=== PATIENT | female | born 1940 ===

== ENCOUNTER → 2017-04-26 | Outpatient (CLI) | payer MEDICARE | LOC: AMB 11:27 | PROVIDERS: ATTEND Nurse Practitioner | DX: T17.920A Food in respiratory tract, part unspecified causing asphyxiation, initial encounter (principal) | CPT/HCPCS: A0425; A0429 ==

== ENCOUNTER 2017-07-05 14:10 | Inpatient (IN) | payer MEDICARE ==
[~2017-07-05] VITALS: Ht 162.6 cm; Wt 50.6 kg
--- NOTE | 2017-07-05 14:16 | ER Report ---
History and Physical Time Seen By MD: 14:15 HPI/ROS CHIEF COMPLAINT: Fatigue, weakness HISTORY OF PRESENT ILLNESS: 77-year-old female otherwise healthy presents with fatigue and weakness feels too weak to walk progressively over the last 4 days denies chest pain shortness of breath leg pain or swelling unsure fevers no cough or sore throat no other concerns or complaints today. Past medical history includes fungal infection and lung resection years ago. REVIEW OF SYSTEMS: Constitutional: No fever, no chills. Eyes: No discharge. ENT: No sore throat. Cardiovascular: No chest pain, no palpitations. Respiratory: No cough, no shortness of breath. Gastrointestinal: No abdominal pain, no vomiting. Genitourinary: No hematuria. Musculoskeletal: No back pain. Skin: No rashes. Neurological: No headache. Allergies: Coded Allergies: No Known Drug Allergies (Unverified , 07/05/17) Home Meds Reported Medications Donepezil Hcl (DONEPEZIL HCL) 5 Mg Tablet, 5 MG PO QDAY, TAB 07/05/17 Levothyroxine Sodium (LEVOTHYROXINE SODIUM) 50 Mcg Tablet, 25 MCG PO QDAY, TAB 07/05/17 Pravastatin Sodium (PRAVACHOL) 20 Mg Tablet, 20 MG PO QDAY, TAB 07/05/17 Constitutional Vital Sign - Last 24 Hours 07/05/17 07/05/17 14:14 15:58 Temp 97.8 Pulse 101 Resp 16 B/P (MAP) 118/71 Pulse Ox 92 O2 Flow Rate 3.0 Intake and Output 07/05/17 07/05/17 07/06/17 15:00 23:00 07:00 Output Total 30 ml Balance -30 ml Physical Exam General Appearance: The patient is alert, has no immediate need for airway protection and no signs of toxicity. No acute distress Eyes: Pupils equal and round no pallor or injection. ENT, Mouth: Mucous membranes are moist. Respiratory: There are no retractions, lungs are clear to auscultation. Cardiovascular: Regular rate and rhythm. No murmurs gallops or rubs Gastrointestinal: Abdomen is soft and non tender, no masses, bowel sounds normal. Neurological: Negative no focal neurological deficits appreciated on exam. Skin: Warm and dry, no rashes. Musculoskeletal: Neck is supple non tender. Extremities are nontender, nonswollen and have full range of motion. Normal no edema DIFFERENTIAL DIAGNOSIS: After history and physical exam differential diagnosis was considered for pneumonia, pulmonary embolus, acute coronary syndrome, bacteremia, urinary tract infection Medical Decision Making Data Points Result Diagram: 07/05/17 1404 07/05/17 1404 Laboratory Hematology Test 07/05/17 14:04 07/05/17 14:41 07/05/17 15:00 Red Blood Count 4.75 M/uL (4.17-5.56) Mean Corpuscular Volume 86.2 fL (80.0-96.0) Mean Corpuscular Hemoglobin 28.5 pg (26.0-33.0) Mean Corpuscular Hemoglobin Concent 33.1 g/dL (32.0-36.0) Red Cell Distribution Width 14.9 % (11.5-14.5) Mean Platelet Volume 7.3 fL (7.2-11.1) Neutrophils (%) (Auto) 76.8 % (39.4-72.5) Lymphocytes (%) (Auto) 14.8 % (17.6-49.6) Monocytes (%) (Auto) 7.9 % (4.1-12.4) Eosinophils (%) (Auto) 0.1 % (0.4-6.7) Basophils (%) (Auto) 0.4 % (0.3-1.4) Nucleated RBC Relative Count (auto) 0.0 /100WBC Neutrophils # (Auto) 8.9 K/uL (2.0-7.4) Lymphocytes # (Auto) 1.7 K/uL (1.3-3.6) Monocytes # (Auto) 0.9 K/uL (0.3-1.0) Eosinophils # (Auto) 0.0 K/uL (0.0-0.5) Basophils # (Auto) 0.0 K/uL (0.0-0.1) Nucleated RBC Absolute Count (auto) 0.00 K/uL Peripheral Blood Smear No Y/N D-Dimer Quantitative (PE/DVT) 10.24 ug/ml (0-0.50) Sodium Level 134 mmol/L (137-145) Potassium Level 3.6 mmol/L (3.5-5.0) Chloride Level 96 mmol/L (98-107) Carbon Dioxide Level 24 mmol/L (22-31) Blood Urea Nitrogen 20 mg/dl (7-18) Creatinine 0.70 mg/dl (0.52-1.04) Glomerular Filtration Rate Calc > 60.0 Random Glucose 192 mg/dl (75-110) Calcium Level 9.5 mg/dl (8.4-10.2) Total Bilirubin 0.6 mg/dl (0.2-1.3) Aspartate Amino Transf (AST/SGOT) 45 U/L (0-35) Alanine Aminotransferase (ALT/SGPT) 30 U/L (0-56) Alkaline Phosphatase 110 U/L (0-126) Troponin I < 0.012 ng/ml B-Type Natriuretic Peptide 229 pg/ml (0-100) Total Protein 10.1 gm/dl (6.3-8.2) Albumin 3.6 g/dl (3.5-5.0) Influenza Virus Type A (PCR) Negative (NEGATIVE) Influenza Virus Type B (PCR) Negative (NEGATIVE) Urine Color Yellow Urine Clarity Clear Urine pH 6.0 pH (4.8-9.5) Urine Specific [place] 1.018 Urine Protein 30 mg/dL (NEGATIVE) Urine Glucose (UA) Negative mg/dL (NEGATIVE) Urine Ketones Negative mg/dL (NEGATIVE) Urine Blood Negative (NEGATIVE) Urine Nitrite Negative (NEGATIVE) Urine Bilirubin Negative (NEGATIVE) Urine Urobilinogen Negative mg/dL (0.2-1.9) Urine Leukocyte Esterase Negative (NEGATIVE) Urine RBC 2 /HPF (0-2/HPF) Urine WBC 1 /HPF (0-5/HPF) Urine Squamous Epithelial Cells None /LPF (NONE-FEW) Urine Bacteria Negative /HPF (NONE-FEW) Urine Hyaline Casts Many /LPF (NONE-FEW) Urine Mucus Few /HPF (NONE-FEW) Chemistry Test 07/05/17 14:04 07/05/17 14:41 07/05/17 15:00 White Blood Count 11.5 k/uL (4.5-11.0) Red Blood Count 4.75 M/uL (4.17-5.56) Hemoglobin 13.5 g/dL (12.0-16.0) Hematocrit 40.9 % (34.0-47.0) Mean Corpuscular Volume 86.2 fL (80.0-96.0) Mean Corpuscular Hemoglobin 28.5 pg (26.0-33.0) Mean Corpuscular Hemoglobin Concent 33.1 g/dL (32.0-36.0) Red Cell Distribution Width 14.9 % (11.5-14.5) Platelet Count 322 K/uL (150-450) Mean Platelet Volume 7.3 fL (7.2-11.1) Neutrophils (%) (Auto) 76.8 % (39.4-72.5) Lymphocytes (%) (Auto) 14.8 % (17.6-49.6) Monocytes (%) (Auto) 7.9 % (4.1-12.4) Eosinophils (%) (Auto) 0.1 % (0.4-6.7) Basophils (%) (Auto) 0.4 % (0.3-1.4) Nucleated RBC Relative Count (auto) 0.0 /100WBC Neutrophils # (Auto) 8.9 K/uL (2.0-7.4) Lymphocytes # (Auto) 1.7 K/uL (1.3-3.6) Monocytes # (Auto) 0.9 K/uL (0.3-1.0) Eosinophils # (Auto) 0.0 K/uL (0.0-0.5) Basophils # (Auto) 0.0 K/uL (0.0-0.1) Nucleated RBC Absolute Count (auto) 0.00 K/uL Peripheral Blood Smear No Y/N D-Dimer Quantitative (PE/DVT) 10.24 ug/ml (0-0.50) Glomerular Filtration Rate Calc > 60.0 Calcium Level 9.5 mg/dl (8.4-10.2) Total Bilirubin 0.6 mg/dl (0.2-1.3) Aspartate Amino Transf (AST/SGOT) 45 U/L (0-35) Alanine Aminotransferase (ALT/SGPT) 30 U/L (0-56) Alkaline Phosphatase 110 U/L (0-126) Troponin I < 0.012 ng/ml B-Type Natriuretic Peptide 229 pg/ml (0-100) Total Protein 10.1 gm/dl (6.3-8.2) Albumin 3.6 g/dl (3.5-5.0) Influenza Virus Type A (PCR) Negative (NEGATIVE) Influenza Virus Type B (PCR) Negative (NEGATIVE) Urine Color Yellow Urine Clarity Clear Urine pH 6.0 pH (4.8-9.5) Urine Specific [place] 1.018 Urine Protein 30 mg/dL (NEGATIVE) Urine Glucose (UA) Negative mg/dL (NEGATIVE) Urine Ketones Negative mg/dL (NEGATIVE) Urine Blood Negative (NEGATIVE) Urine Nitrite Negative (NEGATIVE) Urine Bilirubin Negative (NEGATIVE) Urine Urobilinogen Negative mg/dL (0.2-1.9) Urine Leukocyte Esterase Negative (NEGATIVE) Urine RBC 2 /HPF (0-2/HPF) Urine WBC 1 /HPF (0-5/HPF) Urine Squamous Epithelial Cells None /LPF (NONE-FEW) Urine Bacteria Negative /HPF (NONE-FEW) Urine Hyaline Casts Many /LPF (NONE-FEW) Urine Mucus Few /HPF (NONE-FEW) Coagulation Test 07/05/17 14:04 D-Dimer Quantitative (PE/DVT) 10.24 ug/ml Urinalysis Test 07/05/17 15:00 Urine Color Yellow Urine Clarity Clear Urine pH 6.0 pH (4.8-9.5) Urine Specific [place] 1.018 Urine Protein 30 mg/dL (NEGATIVE) Urine Glucose (UA) Negative mg/dL (NEGATIVE) Urine Ketones Negative mg/dL (NEGATIVE) Urine Blood Negative (NEGATIVE) Urine Nitrite Negative (NEGATIVE) Urine Bilirubin Negative (NEGATIVE) Urine Urobilinogen Negative mg/dL (0.2-1.9) Urine Leukocyte Esterase Negative (NEGATIVE) Urine RBC 2 /HPF (0-2/HPF) Urine WBC 1 /HPF (0-5/HPF) Urine Squamous Epithelial Cells None /LPF (NONE-FEW) Urine Bacteria Negative /HPF (NONE-FEW) Urine Hyaline Casts Many /LPF (NONE-FEW) Urine Mucus Few /HPF (NONE-FEW) EKG/Imaging EKG Interpretation My read: Normal sinus rhythm rate of 88 normal MN QRS and QTc intervals no ST or T-wave changes to suggest ischemia or infarction overall impression: Normal EKG ED Course/Re-evaluation ED Course Radiology report called back to me the findings were discussed with the hospitalist Dr. Cristian Saab, who is seen patient in the emergency department patient will be admitted to a resuscitation room for TB rule out and further evaluation. This is discussed with the patient who agrees with the plan for admission. Vitals are stable for floor admission. Decision to Disposition Date: Jul 05, 2017 Decision to Disposition Time: 17:52 Depart Departure Latest Vital Signs Vital Signs Date Time Temp Pulse Resp B/P (MAP) Pulse Ox O2 Delivery O2 Flow Rate FiO2 07/05/17 15:58 3.0 07/05/17 14:14 97.8 101 16 118/71 92 Impression: Primary Impression: Weakness generalized Condition: Improved Disposition: HOME OR SELF-CARE MIKAELA REAGAN MD Jul 05, 2017 14:15
[2017-07-05] MEDS ORDERED: PRAV20TA65 PO (14:19)
[2017-07-05] MEDS ORDERED: DONE5TAB29 PO (14:19)
[2017-07-05] MEDS ORDERED: LEVO50TA86 PO (14:19)
[2017-07-05] MEDS ORDERED: NS(*) 0.9% 1000 ML BAG 1,000 ML IV ONE (14:30)
[2017-07-05 14:44] LABS: PLATELET COUNT, AUTOMATED 322 K/uL (150-450)
[2017-07-05] MEDS ORDERED: EMS NS 0.9%(*) 1000 ML BAG 1,000 ML IV ONE (14:45)
--- NOTE | 2017-07-05 14:49 | EKG ---
[place] [facility] [place] AMY GUZMAN : [id number] MR: [id number] V: [id number] EXAM DATE: ORDERING PHYSICIAN: MIKAELA REAGAN TECHNOLOGIST: KAREY Gordillo Reason : HTN Blood Pressure : / mmHG Vent. Rate : 088 BPM Atrial Rate : 088 BPM P-R Int : 148 ms QRS Dur : 096 ms QT Int : 380 ms P-R-T Axes : 083 065 076 degrees QTc Int : 459 ms Normal sinus rhythm Normal ECG No previous ECGs available Confirmed by MAITE MUNOZ ([id number]) on 07/05/2017 3:07:51 PM Referred By: Confirmed By:MAITE MUNOZ
--- NOTE | 2017-07-05 15:15 | RADIOLOGY IMAGING REPORT ---
FACILITY: [facility] PATIENT NAME: April Barraza : 1940 MR: [id number] V: [id number] EXAM DATE: ORDERING PHYSICIAN: MIKAELA REAGAN TECHNOLOGIST: Location: [facility] - [place] Patient: April Barraza : 1940 Visit/Account:[id number] Date of Sevice: 07/05/2017 CHEST SINGLE AP Indication: Wheezing and dyspnea.. Comparison: 04/26/2017. Findings: Cardiomediastinal silhouette and pulmonary vessels within normal limits. There is increased interstitial opacities with underlying chronic interstitial changes. No focal cons olidation. No pneumothorax or pleural effusion. No nodule. Upper abdomen is unremarkable. No acute bony abnormality. Bilateral breast implants are vi sualized. IMPRESSION: 1. Increased interstitial opacities may be secondary to edema, interstitial pneumonitis or less likel y worsening chronic interstitial disease. Report Dictated By: Wander Whiting at 07/05/2017 3:09 PM Report E-Signed By: Wander Whiting at 07/05/2017 3:11 PM WSN:[id number]
[2017-07-05] MEDS ORDERED: NS 0.9% 150 ML BAG 150 ML ONE (15:28)
[2017-07-05] MEDS ORDERED: IOPAMIDOL 76% 75 ML INFUS BTL 75 ML ONE (15:28)
--- NOTE | 2017-07-05 16:37 | RADIOLOGY IMAGING REPORT ---
[place] [facility] [place] NAME: April Barraza : 1940 MR: [id number] V: [id number] EXAM DATE: ORDERING PHYSICIAN: MIKAELA REAGAN TECHNOLOGIST: Location: [facility] - [place] Patient: April Barraza : 1940 Visit/Account:[id number] Date of Sevice: 07/05/2017 EXAMINATION: CT chest angiogram HISTORY: Elevated d-dimer, weakness TECHNIQUE: CT angiogram was obtained through the chest with intravenous contrast. Sagittal and cor onal MPR and MIP coronal reformations were generated. 75 mL chest radiograph same day was injected. One of the following dose optimization techniques was utilized in the performance of this exam: autom ated exposure control; adjustment of the mA and/or kV according to patient size; or use of iterative reconstruction technique. Specific details can be referenced in the facility's radiology CT exam ope rational policy. COMPARISON: None. FINDINGS: Lower neck: Left thyroid nodule measures 1.6 cm transverse dimension. Heart / pericardium/aorta/great vessels: Normal. Mediastinum: Normal. Lymph node assessment: Normal. Pleura: Normal. Pulmonary arteries/pulmonary arterial vascular tree: No pulmonary embolus identified.. Lungs: Bilateral scattered pulmonary cysts versus emphysematous blebs most pronounced in the left lo wer lobe. Peripheral scarring along the right lateral lower lobe, image 48. Ovoid nodular consolidati on in the right lower lobe abuts the major fissure and is partially cavitary, image 37 measuring 1.7 cm. Multiple regional nodules in the medial right upper lobe measuring up to 6 mm, axial image 27. Ad ditional irregular scarring in the left upper lobe measuring 1.7 cm medially, image 21. Partially irregularly shaped partially cavitary consolidation in the right upper lobe abuts the pleur a and measures 2.8 x 2 cm transverse, axial image 22 x 4.2 cm craniocaudad, coronal image 150. Anterior right upper lobe focal probable scarring, axial image 34. Right lower lobe peripheral nodular scarring, coronal image 183 measures 9 mm. Subtle centrilobular nodularity in the right middle and right lower lobes, coronal image 97. Upper abdomen: Normal. Chest wall: Rim calcified breast implants. Musculoskeletal: Minimal chronic T4 wedge compression deformity. Partially imaged L1 wedge compression deformity with superior concave endplate deformity and subtle n ondisplaced fracture lucency, sagittal image 134. IMPRESSION: 1. No pulmonary embolus. 2. Age-indeterminate nonspecific cavitary consolidation in the right upper lobe measures 2.8 x 2 x 4. 2 cm. This may represent the residua of prior TB or fungal infection. An acute TB/fungal infection is felt less likely but cannot be entirely excluded. An acute cavitary bronchopneumonia cannot be exclu ded. A cavitary malignancy is felt less likely but cannot be entirely excluded and follow-up chest CT 1-2 months is recommended to evaluate for persistence/stability. 3. Scattered pulmonary nodules in the right upper lobe, right middle and right lower lobes which may represent the residua of prior infectious or inflammatory process. An acute small airways infection o r metastatic nodularity are felt less likely but cannot be entirely excluded. Attention to these nodules on follow-up. 4. Subacute to chronic nonhealed partially imaged L1 wedge compression fracture. Correlate with exam. 5. 1.6 cm left thyroid nodule. Given size follow up ultrasound may be warranted for further character ization. Results were called to MIKAELA REAGAN on 07/05/2017 4:32 PM. Report Dictated By: Kevin Jiménez MD at 07/05/2017 4:07 PM Report E-Signed By: Kevin Jiménez MD at 07/05/2017 4:32 PM WSN:[id number]
[2017-07-05] MEDS ORDERED: NS(*) 0.9% 1000 ML BAG 1,000 ML IV PRN (18:09)
[2017-07-05] MEDS ORDERED: ACETAMINOPHEN 325 MG TAB PO PRN (18:10)
[2017-07-05] MEDS ORDERED: INSULIN HUM LISPRO 100 UN/ML 3 ML VIAL SUBQ PRN (18:45)
--- NOTE | 2017-07-05 18:56 | History & Physical ---
History of Present Illness History of Present Illness 77yo female with a h/o dementia and "yeast infection" of the lung who was brought to the ER for progressive weakness. Her significant other gives most of the history, but she gives some.For the last couple of weeks, she has had a decreased appetite and weakness. Today, she couldn't stand on her own. She also had an episode where she gagged on food. She denies night sweats, cough, fever, diarrhea, dysuria, focal weakness. There have been no new medications. About 5-6 years ago, she had a lung surgery on the right for "yeast infection". History Problems: (1) Hypothyroid Status: Chronic (2) Hyperlipemia Status: Chronic (3) Dementia Status: Chronic (4) Sjogrens syndrome Status: Chronic (5) History of cholecystectomy (6) History of tonsillectomy (7) History of lung surgery Home Meds Reported Medications Donepezil Hcl (DONEPEZIL HCL) 5 Mg Tablet, 5 MG PO QDAY, TAB 07/05/17 Levothyroxine Sodium (LEVOTHYROXINE SODIUM) 50 Mcg Tablet, 25 MCG PO QDAY, TAB 07/05/17 Pravastatin Sodium (PRAVACHOL) 20 Mg Tablet, 20 MG PO QDAY, TAB 07/05/17 Allergies: Coded Allergies: No Known Drug Allergies (Unverified , 07/05/17) Other Social/Family Hx She lives with her significant other in an apartment in [place]. 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 Hx Smoking: No Hx Alcohol Use: No Review of Systems All Systems Reviewed/Normal: Yes, Except as Noted Exam Vital Signs Vital Signs Date Time Temp Pulse Resp B/P (MAP) Pulse Ox O2 Delivery O2 Flow Rate FiO2 07/05/17 17:30 89 26 144/73 (96) 97 07/05/17 15:58 3.0 07/05/17 14:14 97.8 General Appearance: Alert, Awake, No Acute Distress Neuro: No Gross deficits ENT: Oropharynx Clear, Posterior Pharynx Clear, Other (Tacky mucus membranes.) Cardiovascular: Regular Rate and Rhythm Respiratory: Clear to Auscultation GI: Abd Soft and Non-Tender Extremities: No Edema Integumentary: No Jaundice, No Cyanosis Medical Decision Making Data Points Result Diagram: 07/05/17 1404 07/05/17 1404 Item Value Date Time White Blood Count 11.5 k/uL H 07/05/17 1404 Hemoglobin 13.5 g/dL 07/05/17 1404 Neutrophils (%) (Auto) 76.8 % H 07/05/17 1404 Lymphocytes (%) (Auto) 14.8 % L 07/05/17 1404 Monocytes (%) (Auto) 7.9 % 07/05/17 1404 Eosinophils (%) (Auto) 0.1 % L 07/05/17 1404 Lactate 0.9 mmol/L 07/05/17 1748 B-Type Natriuretic Peptide 229 pg/ml H 07/05/17 1404 Total Protein 10.1 gm/dl H 07/05/17 1404 Albumin 3.6 g/dl 07/05/17 1404 Total Bilirubin 0.6 mg/dl 07/05/17 1404 Aspartate Amino Transf (AST/SGOT) 45 U/L H 07/05/17 1404 Alanine Aminotransferase (ALT/SGPT) 30 U/L 07/05/17 1404 Alkaline Phosphatase 110 U/L 07/05/17 1404 Troponin I < 0.012 ng/ml 07/05/17 1404 Influenza Virus Type A (PCR) Negative 07/05/17 1441 Influenza Virus Type B (PCR) Negative 07/05/17 1441 Urine WBC 1 /HPF 07/05/17 1500 Urine RBC 2 /HPF 07/05/17 1500 Urine Squamous Epithelial Cells None /LPF 07/05/17 1500 Urine Bacteria Negative /HPF 07/05/17 1500 Urine Hyaline Casts Many /LPF H 07/05/17 1500 Urine Leukocyte Esterase Negative 07/05/17 1500 Urine Nitrite Negative 07/05/17 1500 D-Dimer Quantitative (PE/DVT) 10.24 ug/ml H 07/05/17 1404 EKG / Imaging EKG Interpretation Vent. Rate : 088 BPM Atrial Rate : 088 BPM P-R Int : 148 ms QRS Dur : 096 ms QT Int : 380 ms P-R-T Axes : 083 065 076 degrees QTc Int : 459 ms Normal sinus rhythm Normal ECG No previous ECGs available Confirmed by MAITE MUNOZ ([id number]) on 07/05/2017 3:07:51 PM Imaging CXR - 1. Increased interstitial opacities may be secondary to edema, interstitial pneumonitis or less likely worsening chronic interstitial disease. Chest CTA - 1. No pulmonary embolus. 2. Age-indeterminate nonspecific cavitary consolidation in the right upper lobe measures 2.8 x 2 x 4.2 cm. This may represent the residua of prior TB or fungal infection. An acute TB/fungal infection is felt less likely but cannot be entirely excluded. An acute cavitary bronchopneumonia cannot be excluded. A cavitary malignancy is felt less likely but cannot be entirely excluded and follow-up chest CT 1-2 months is recommended to evaluate for persistence/ stability. 3. Scattered pulmonary nodules in the right upper lobe, right middle and right lower lobes which may represent the residua of prior infectious or inflammatory process. An acute small airways infection or metastatic nodularity are felt less likely but cannot be entirely excluded. Attention to these nodules on follow-up. 4. Subacute to chronic nonhealed partially imaged L1 wedge compression fracture. Correlate with exam. 5. 1.6 cm left thyroid nodule. Given size follow up ultrasound may be warranted for further characterization. Assessment and Plan Problems: (1) Weakness generalized Status: Acute Assessment & Plan: She presented with progressive weakness over the last couple of weeks and poor appetite. Today, she couldn't get up on her own and she had a gagging episode. This is likely multifactorial. She appears mildly dehydrated. She has an elevated WBC, cavitary lesion on CT, hyperglycemia, and a very elevated total protein. See below. Will hydrate and ask OT/PT to evaluate. (2) Cavitary lesion of lung Status: Acute Assessment & Plan: This is likely related to her previous "yeast infection" of the right lung about 5-6 years ago that was resected. 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 We will try to get the discharge summary from the hospitalization to help clarify. Also, a Emergency Medicine will be in the outpatient clinics tomorrow from the system and will be able to look at those records. (3) Hyperglycemia Status: Acute Assessment & Plan: Check a HgA1c, AC/HS glucose and cover with SSI level 2. (4) Elevated total protein Status: Acute Assessment & Plan: TP is 10.1 and the albumin is 3.6. Will check serum peptide electrophoresis for concern of multiple myeloma and check CRP. (5) Dementia Status: Chronic Assessment & Plan: She is chronically on Aricept which will be held for now. (6) Sjogrens syndrome Status: Chronic Assessment & Plan: This is likely contributing to the gagging episodes. Will ask ST to evaluate. (7) Hypothyroid Status: Chronic Assessment & Plan: TSH pending. Continue levothyroxine. She does have a thyroid nodule seen on the CT. Will need to have that evaluated as an outpatient. (8) Hyperlipemia Status: Chronic Assessment & Plan: Will hold her chronic pravastatin and check a CPK. Venous Thromboembolism Antithrombotics Is Pt On Any Antithrombotics?: No Exam Sepsis Risk: No Definite Risk MAITE MUNOZ MD Jul 05, 2017 18:56
[2017-07-05 19:59] VITALS: BP 136/76
[2017-07-06 02:44] VITALS: BP 146/79
[2017-07-06] MEDS: LEVOTHYROXINE SOD 0.025 MG TAB PO SCH (05:31)
[2017-07-06 06:32] LABS: PLATELET COUNT, AUTOMATED 259 K/uL (150-450)
[2017-07-06 08:38] VITALS: BP 138/77
[2017-07-06] MEDS: ENOXAPARIN 40 MG/0.4ML SYR SC SCH (08:51)
--- NOTE | 2017-07-06 10:39 | Hospitalist Progress Note ---
Subjective Progress Notes Subjective This patient was admitted for weakness. She had no acute events overnight. Patient Complains of: Cardiovascular: No: Chest Pain Respiratory: No: Shortness of Breath Physical Exam Vital Signs Date Time Temp Pulse Resp B/P (MAP) Pulse Ox O2 Delivery O2 Flow Rate FiO2 07/06/17 10:08 106 97 Nasal Cannula 2.0 07/06/17 08:38 98.8 20 138/77 (97) Intake and Output 07/07/17 07:00 # Voids 2 Cardiovascular: Regular Rate and Rhythm Respiratory: Clear to Auscultation Extremities: No Edema Integumentary: No Cyanosis Result Diagram: 07/06/17 0556 07/06/17 0556 Item Value Date Time Blood Culture - Preliminary Resulted 07/05/17 1815 Blood Peripheral Draw NO GROWTH AFTER 1 DAY, REINCUBATED Blood Culture - Preliminary Resulted 07/05/17 1748 Blood Peripheral Draw NO GROWTH AFTER 1 DAY, REINCUBATED Assessment and Plan Problems: (1) Weakness generalized Status: Acute Assessment & Plan: She did present with complaints of weakness. Physical and occupational therapy consults are ordered. (2) Cavitary lesion of lung Status: Acute Assessment & Plan: This is likely related to her previous "yeast infection" of the right lung about 5-6 years ago that was resected. 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 (3) Hyperglycemia Status: Acute Assessment & Plan: She did have an elevated glucose at admission, but it has come down without intervention. Her HgbA1C is 5.7, She will need to follow up with primary care after discharge. (4) Elevated total protein Status: Acute Assessment & Plan: TP is 10.1 and the albumin is 3.6. Will check serum peptide electrophoresis for concern of multiple myeloma and check CRP. (5) Dementia Status: Chronic Assessment & Plan: She is chronically on Aricept which will be held for now. (6) Sjogrens syndrome Status: Chronic Assessment & Plan: This is likely contributing to the gagging episodes. Will ask ST to evaluate. (7) Hypothyroid Status: Chronic Assessment & Plan: TSH pending. Continue levothyroxine. She does have a thyroid nodule seen on the CT. Will need to have that evaluated as an outpatient. (8) Hyperlipemia Status: Chronic Assessment & Plan: Will hold her chronic pravastatin and check a CPK. (9) Dysphagia Assessment & Plan: A speech consult is pending. Exam Sepsis Risk: No Definite Risk YOAV SUAREZ DO Jul 06, 2017 10:39
[2017-07-06 11:52] VITALS: BP 122/77
[2017-07-06 14:32] VITALS: Ht 162.6 cm; Wt 50.6 kg
[2017-07-06 15:18] VITALS: BP 120/91
--- NOTE | 2017-07-06 16:25 | SWALLOW EVALUATION ---
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 Pt is currently in isolation to rule out TB. PREVIOUS LEVEL OF FUNCTION: Primary Medical Diagnosis: Sjorgens Syndrome, Dementia, Respiratory problems Prior Level of Function: lives a home with spouse, independent Medical Complications/Past Medical History: See chart for details COGNITION/COMMUNICATION LOC / Participation: alert cooperative COMMUNICATIVE TASKS: Intact, mild memory deficits SPEECH Apraxia: Non-apraxic Dysarthric: Non-dysarthric Overall intelligibility: high VOICE Vocal Deficits: No Changes to vocal quality: denies DYSPHAGIA Dysphagia Risk Evaluation Protocol DREP: Water Swallow Test: Pass, Puree Swallow Test: Pass, Solids Swallow Test: Pass Dysphagia Severity Rating Scale: 2: Mild oral stage dysphagiaoral dysphagia present, which can be managed by specific swallow suggestions. Modification in consistency of diet is indicated. RSST (Repetitive Saliva Swallow Test): Value greater than 3 times/30 sec = pass Sialorrhea: No Xerostomia: Yes Supplemental Oxygen Use: No Oxygen Saturation: Remains Stable w/ 10ml thin liquids. Respiratory Rate: 18-20bpm < 30 indicating a decreased risk of atypical respiratory/swallow pattern COPD Dx: No Oral Structure and Function: Largely edentulous. Had dentures until approximately 6m ago when her anchor teeth succumb to erosion. She does not plan on replacing dentures d/t cost. Pain with Swallow: Denies Respiratory/Swallow Coordination: Typically patterned (ie. exhale/swallow/ exhale) Oral Stage Oral Stage Dysphagia: mild oral stage dysphagia d/t pt is largely edentulous, xerostomia Self Feeds: Yes Comment: pt demonstrates independence with food prep modifications to compensate for oral stage dysphagia (described above) Pharyngeal Stage Pharyngeal Stage Dysphagia: No s/s of acute pharyngeal stage dysphagia including penetration/ aspiration with liquids or foods. Pt denies s/s of pharyngeal dysphagia post Apr 26 when she was brought to [facility] for choking. She reports she has modified food prep and takes other safety precautions including, soft foods, wet foods, chopped foods, ground meats, slowed eating, small bites Assistance Required: none Indication of acute aspiration witnessed or reported by patient, family or staff : No Aspiration Risk: increased d/t oral stage dysphagia Esophageal Stage Esophageal Stage Dysphagia Indicated: No ST ASSESSMENT SUMMARY DYSPHAGIA Pt demonstrated no acute pharyngeal dysphagia during the evaluation including no penetration/aspiration. She is aware of oral dysphagia d/t largely edentulous and xerostomia. She is aware of increased risk of pharyngeal dysphagia and aspiration d/t oral stage dysphagia. She reports significant modifications to food prep at home following aspiration event in 2016. She follows precautions including: ground meats, soft foods, add moisture , has liquids nearby when eating, slowed eating, small bites. She denies any s /s of pharyngeal dysphagia post Apr, 2017. She agrees to dysphagia 2 diet modification to accommodate oral stage deficits. COGNITIVE: Hx of dementia. Adequate to participate in conversation/education regarding dysphagia/swallow safety RECOMMENDATIONS 1. Diet Modification: Dysphagia 2, wet and chopped. Regular/thin liquids ok 2 Pills: as tolerated 4. Supervision with meals/snacks: Check for oral stasis following meals prior to reclining. 5. Further Evaluation: not at this time. No further need for ST indicated at this time. Thank you for this referral. Lucia Rowley M.S., [facility]-[employer] Speech Therapist LINDY
[2017-07-06 19:26] VITALS: BP 117/70
[2017-07-07] VITALS (11 sets, daily range): BP systolic 85–119; BP diastolic 58–80
[2017-07-07] MEDS: LEVOTHYROXINE SOD 0.025 MG TAB PO SCH (05:46)
[2017-07-07] MEDS ORDERED: NS(*) 0.9% 250 ML BAG 250 ML IV ONE (07:50)
[2017-07-07] MEDS: ENOXAPARIN 40 MG/0.4ML SYR SC SCH (08:32)
--- NOTE | 2017-07-07 11:00 | EKG ---
FACILITY: [facility] PATIENT NAME: AMY GUZMAN : [id number] MR: [id number] V: [id number] EXAM DATE: ORDERING PHYSICIAN: CHARLIE HAMMOND TECHNOLOGIST: BLAYNE Gordillo Reason : TACHY Blood Pressure : / mmHG Vent. Rate : 152 BPM Atrial Rate : 322 BPM P-R Int : 000 ms QRS Dur : 084 ms QT Int : 286 ms P-R-T Axes : 000 059 054 degrees QTc Int : 454 ms Atrial flutter with variable AV block Abnormal ECG When compared with ECG of 05-JUL-2017 14:37, Atrial flutter has replaced Sinus rhythm Vent. rate has increased BY 64 BPM Nonspecific T wave abnormality now evident in Inferior leads Confirmed by MAITE MUNOZ ([id number]) on 07/07/2017 4:08:02 PM Referred By: ALEXANDER Confirmed By:MAITE MUNOZ
[2017-07-07] MEDS ORDERED: NS(*) 0.9% 500 ML BAG 500 ML IV ONE (11:20)
[2017-07-07] MEDS ORDERED: DILTIAZEM 5 MG/ML 5ML IVPUSH IVP ONE (11:20)
[2017-07-07] MEDS: DILTIAZEM HCL* 100 MG ADDVIAL 100 MG in NS(*) 0.9% 100 ML ADDVANT BAG 100 ML IV SCH ×2 (11:47→23:06)
--- NOTE | 2017-07-07 12:41 | Hospitalist Progress Note ---
Subjective Progress Notes Subjective She is without complaints. She went into aflutter with a rate of 150 after the visit. She was without symptoms. Physical Exam Vital Signs Date Time Temp Pulse Resp B/P (MAP) Pulse Ox O2 Delivery O2 Flow Rate FiO2 07/07/17 12:06 85/67 (73) 07/07/17 11:45 130 07/07/17 10:22 97.9 16 96 Nasal Cannula 0.5 Intake and Output 07/08/17 07:00 # Voids 2 General Appearance: Alert, Awake, No Acute Distress Cardiovascular: Regular Rate and Rhythm Result Diagram: 07/06/17 0556 07/06/17 0556 Assessment and Plan Problems: (1) Weakness generalized Status: Acute Assessment & Plan: She presented with progressive weakness over the last couple of weeks and poor appetite. The day of admission, she couldn't get up on her own and she had a gagging episode. This is likely multifactorial, but concerned about a failure to thrive at home. She was hydrated. She had an elevated WBC (now normal), elevated CPK, cavitary lesion on CT, hyperglycemia ( now resolved), and a very elevated total protein. See below. OT/PT following. She might need an MRI of the brain. Will repeat CPK and add ESR for concern of PMR. (2) Atrial flutter Status: Acute Assessment & Plan: She is asymptomatic. [id number] score of 3. Trying to control rate with diltiazem. Will get an echo. She currently is on Lovenox 40mg a day for stroke prophylaxis. Will look into if insurance will cover Xarelto. (3) Cavitary lesion of lung Status: Acute Assessment & Plan: This is likely related to her previous "yeast infection" of the right lung about 5-6 years ago that was resected. 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 We will try to get the discharge summary from the hospitalization to help clarify. (4) Hyperglycemia Status: Resolved Assessment & Plan: She did have an elevated glucose at admission, but it has come down without intervention. Her HgbA1C is 5.7, She will need to follow up with primary care after discharge. (5) Elevated total protein Status: Acute Assessment & Plan: TP is 10.1 and the albumin is 3.6. Will check serum peptide electrophoresis for concern of multiple myeloma. CRP elevated. (6) Dementia Status: Chronic Assessment & Plan: She is chronically on Aricept which will be held for now. (7) Sjogrens syndrome Status: Chronic Assessment & Plan: This is likely contributing to the gagging episodes. ST recommends dysphagia 2 diet , wet and chopped. No changes in liquid thickness recommended. (8) Dysphagia Assessment & Plan: See above. (9) Hypothyroid Status: Chronic Assessment & Plan: TSH elevated. Increase levothyroxine. She does have a thyroid nodule seen on the CT. Will need to have that evaluated as an outpatient. (10) Hyperlipemia Status: Chronic Assessment & Plan: Will hold her chronic pravastatin. CPK wnl. Exam Sepsis Risk: No Definite Risk MAITE MUNOZ MD Jul 07, 2017 12:41
[2017-07-07] MEDS ORDERED: DIGOXIN 0.5 MG/2 ML AMP IVP ONE ×2 (13:00→18:00)
[2017-07-07] MEDS: NS(*) 0.9% 1000 ML BAG 1,000 ML IV PRN (14:34)
[2017-07-08 03:18] VITALS: BP 94/62
[2017-07-08] MEDS: LEVOTHYROXINE SOD 0.05 MG TAB PO SCH (05:57)
[2017-07-08 06:12] LABS: PLATELET COUNT, AUTOMATED 286 K/uL (150-450)
[2017-07-08 07:50] VITALS: BP 118/73
[2017-07-08] MEDS: ENOXAPARIN 40 MG/0.4ML SYR SC SCH (08:38)
[2017-07-08] MEDS ORDERED: INFLUENZA VIRUS VAC 0.5 ML SYR IM ONLY ONE (09:00)
--- NOTE | 2017-07-08 09:50 | RADIOLOGY IMAGING REPORT ---
FACILITY: PATIENT NAME: AMY GUZMAN : [id number] MR: [id number] V: [id number] EXAM DATE: ORDERING PHYSICIAN: MAITE MUNOZ TECHNOLOGIST: Stephy Church EXAMINATION:TWO-DIMENSIONAL ECHOCARDIOGRAPH REASON:ATRIAL FIBRILATION 2D Measurements (normal values in centimeters) LV endLV endRV endVent.LV PostAorticLeftPercent DiastolicSystolicDiastolicSeptumWallRootAtriumShortening (3.5-5.7)(0.9-2.6)(0.6-1.1)(0.6-1.1)(2.0-3.7)(1.9-4.0)(25-35%) [id number]% STROKE VOLUME: 25ml ESTIMATED EJECTION FRACTION:55% PARASTERNAL LONG AXIS: Patient appears to be in atrial flutter. No thrombi are noted but the left atrial appendage is not seen. The overall left ventricular systolic function appears to be normal. Chamber sizes also appear to be normal. Aortic valve & mitral valve both appear to open normally. Color examination reveals a trace of mitral insufficiency present. PARASTERNAL SHORT AXIS: Overall left ventricular systolic function again appears to be normal. No specific wall motion abnormalities are noted. Aortic valve is trileaflet in configuration & appears to open normally. Color examination of the aortic valve was unremarkable. APICAL FOUR AND TWO CHAMBER: Again left ventricular systolic function appears to be normal. Trace of tricuspid & mitral insufficiency is noted. The aortic valve area was measured within normal ranges at 2.1cm2. The tricuspid regurgitation Vmax measured at 2.8m/sec. The left atrial & right atrial volumes are measured within normal ranges at 18 & 22ml/m2. SUBCOSTAL VIEW: No pericardial effusion was noted. No atrioseptal or ventriculoseptal defects were appreciated. OVERALL IMPRESSION: 1. Normal left ventricular ejection fraction. We were not able to accurately characterize the diastolic function as the patient is in atrial flutter. No thrombi were noted in any of the chambers. Left atrial appendage is not seen. 2. Chamber sizes are normal. 3. A trileaflet aortic valve with no abnormalities. 4. A trace of mitral & tricuspid insufficiency with right ventricular systolic pressures at the upper range of normal at 35mm Hg. This does include an estimated right atrial pressure of 3mm Hg. Dictated by: Jessica Velasquez M.D. on 07/08/2017 at 6:55 Transcribed by: MARY on 07/08/2017 at 8:37 Approved by: Jessica Velasquez M.D. on 07/08/2017 at 9:49 [facility]
[2017-07-08 13:06] VITALS: BP 110/59
[2017-07-08 14:41] VITALS: BP 121/65
--- NOTE | 2017-07-08 15:39 | Hospitalist Progress Note ---
Subjective Progress Notes Subjective She does not complain, but is still very weak. We were able to obtain some old records. Physical Exam Vital Signs Date Time Temp Pulse Resp B/P (MAP) Pulse Ox O2 Delivery O2 Flow Rate FiO2 07/08/17 14:41 98.1 91 12 121/65 (83) 90 Nasal Cannula 0.5 Intake and Output 07/09/17 07:00 Intake Total 0 ml Balance 0 ml Intake Oral 0 ml # Voids 1 General Appearance: Alert, Awake Neuro: Other (generalized weakness) Cardiovascular: Other (Fairly regular) Respiratory: Other (fairly clear) GI: Soft and Non-Tender Extremities: Warm, Perfused Result Diagram: 07/08/1753207/08/17532 Assessment and Plan Problems: (1) Weakness generalized Status: Acute Assessment & Plan: She presented with progressive weakness over the last couple of weeks and poor appetite. The day of admission, she couldn't get up on her own and she had a gagging episode. This is likely multifactorial, but concerned about a failure to thrive at home. She has been given IV fluids. She had an elevated WBC (now normal), normal CPK, cavitary lesion on CT, hyperglycemia (now resolved), and a very elevated total protein. See below. OT /PT following. May need to consider an MRI of the brain. Findings are concerning for a possible myeloma or possibly even macroglobulinemia. (2) Atrial flutter Status: Acute Assessment & Plan: She is asymptomatic. [id number] score of 3. She did convert back to sinus rhythm. Will check an echocardiogram. She currently is on Lovenox 40mg a day for prophylaxis. Will hold off on chronic anticoagulation for now, but if she has recurrent episodes, will need to consider starting. (3) Cavitary lesion of lung Status: Acute Assessment & Plan: This is likely related to her previous "yeast infection" of the right lung several years ago that was resected. 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 Her PPD is negative, but she will need a "two-step" ( placed on 07/12/17). She has not had any morning sputum, so we have been unable to do AFB smears/cultures. Report of a CT scan of her chest from 2008 does indicate she has had the cavitary lesion in her right lung at least since that time. We will now take her out of isolation and stop the sputum collections for AFB. (4) Hyperglycemia Status: Resolved Assessment & Plan: She did have an elevated glucose at admission, but it has come down without intervention. Her HgbA1C is 5.7, She will need to follow up with primary care after discharge. (5) Elevated total protein Status: Acute Assessment & Plan: Total protein was 10.1 with an albumin of 3.6. Serum protein electrophoresis is still pending. Even after IV fluids differential is still >5gms. Significant concern for multiple myeloma/macroglobulinemia. CRP elevated. (6) Dementia Status: Chronic Assessment & Plan: She is chronically on Aricept which will be held for now. (7) Sjogrens syndrome Status: Chronic Assessment & Plan: This is likely contributing to the gagging episodes. ST recommends dysphagia 2 diet , wet and chopped. No changes in liquid thickness recommended. (8) Dysphagia Assessment & Plan: See above. (9) Hypothyroid Status: Chronic Assessment & Plan: TSH elevated. We did increase levothyroxine dose to 50mcg daily. Recheck TSH in 4-6 weeks. She does have a thyroid nodule seen on the CT. Will need to have that evaluated as an outpatient. (10) Hyperlipemia Status: Chronic Assessment & Plan: Will hold her chronic pravastatin. CPK in normal range. Exam Sepsis Risk: No Definite Risk JOSELITO FLOWER MD Jul 08, 2017 15:39
--- NOTE | 2017-07-08 17:37 | Medical Nutrition Therapy ---
Nutrition Anthropometrics Height (Inches): 64.00 Height (Calculated Centimeters: 162.675551 Weight (Pounds): 111 Weight (Calculated Kilograms): 50.576 BMI Calculated: 19.05 Dimitris Nutrition Score: Probably Inadequate Dimitris Nutrition Risk Score: 14 Dietary Referral Nutrition Risk Factors: Diff. Swallowing Nutrition Risk Comment: Nutritional Diagnosis Nutritional Risk Acuity 2: Pr Appetite > 3d, Swallowing Problem Past Medical History: Dementia Nutritional Acuity: 2-Moderate Nutrition Diagnosis: Swallowing Difficulties Nutrition Etiology: Physiological Causes Nutrition Problem/Etiology/Sym: AEB oral phase dysphagia idenified in barium swallow Energy Requirement: 1275 (M- STJ) Protein Requirement: 51 (1gm/kg) Fluid Requirement: 1500 (30ml/kg) Diet Type: Dysphagia Stage 2 Nutrition Intervention: Cont diet as ordered, Encourage intake Additional Diet Restrictions: OFFER NUTR SUPPLMENT Diet Comment To RSA: Dsypagia 2 with chopped , wet (gravy or sauce) meats Nutrition Monitoring & Eval Nutrition Follow-Up: Poor Intake RD Patient Assessment Time: [address] Assessment Type: RD Screen Patient Nutrition Acuity: 2-Moderate Follow Up Date: Jul 11, 2017 Nutritional Comment: 3/5 Pt admitted with weakness and poor appetite ~ 2 weeks. Pt reporting swallowing difficulties. Awaiting ST eval. Pt on regular diet but did not eat first meal in facility. Will offer nutr supplment to increase kcal and protein intake. Alb 3.2. BG elevation on admission but has declined. A1C 5.7 which is in prediabetes range. Will cont to monitor 3/7 Pt on dyspagia 2 with chopped, wet foods per ST eval. Intake averge 32%. Will cont to offer nutr supplements to increase kcal and protein intake. Alb 2.7. Will cont to monitor CHRISTINA CHESTER Jul 08, 2017 17:37
[2017-07-08 19:31] VITALS: BP 118/78
[2017-07-09] VITALS: BP 123/78
[2017-07-09 02:51] VITALS: BP 136/79
[2017-07-09] MEDS: LEVOTHYROXINE SOD 0.05 MG TAB PO SCH (06:01)
[2017-07-09 06:29] LABS: PLATELET COUNT, AUTOMATED 302 K/uL (150-450)
[2017-07-09 07:46] VITALS: BP 158/79
[2017-07-09] MEDS: NS(*) 0.9% 1000 ML BAG 1,000 ML IV PRN (08:37)
[2017-07-09] MEDS: ENOXAPARIN 40 MG/0.4ML SYR SC SCH (09:12)
[2017-07-09 11:27] VITALS: BP 126/86
--- NOTE | 2017-07-09 12:36 | Hospitalist Progress Note ---
Subjective Progress Notes Subjective The patient states she feels "great" today. Physical Exam Vital Signs Date Time Temp Pulse Resp B/P (MAP) Pulse Ox O2 Delivery O2 Flow Rate FiO2 07/09/17 11:55 90 07/09/17 11:27 97.8 14 126/86 (99) 90 Room Air 07/08/17 14:41 0.5 Intake and Output 07/10/17 07:00 Intake Total 240 ml Balance 240 ml Intake Oral 240 ml # Voids 2 # Bowel Movements 2 General Appearance: Alert, Awake, No Acute Distress, Afebrile Neuro: No Gross deficits Cardiovascular: Regular Rate and Rhythm Respiratory: Clear to Auscultation GI: Soft and Non-Tender Extremities: Warm, Perfused, Other (No edema.) Psych: Appropriate Mood & Affect Result Diagram: 07/09/1753307/09/17533 Assessment and Plan Problems: (1) Weakness generalized Status: Acute Assessment & Plan: She presented with progressive weakness over the last couple of weeks and poor appetite. The day of admission, she couldn't get up on her own and she had a gagging episode. This is likely multifactorial, but concerned about a failure to thrive at home. She has been given IV fluids. She had an elevated WBC (now normal), normal CPK, cavitary lesion on CT ( unchanged from previous), hyperglycemia (now resolved), and a very elevated total protein. See below. OT/PT following. May need to consider an MRI of the brain. Findings are concerning for a possible myeloma or possibly even macroglobulinemia. (2) Atrial flutter Status: Acute Assessment & Plan: She is asymptomatic. [id number] score of 3. She did convert back to sinus rhythm. Will check an echocardiogram. She currently is on Lovenox 40mg a day for prophylaxis. Will hold off on chronic anticoagulation for now, but if she has recurrent episodes, will need to consider starting. (3) Cavitary lesion of lung Status: Acute Assessment & Plan: This is likely related to her previous "yeast infection" of the right lung several years ago that was resected. 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 Her PPD is negative, but she will need a "two-step" ( placed on 07/12/17). She has not had any morning sputum, so we have been unable to do AFB smears/cultures. Report of a CT scan of her chest from 2008 does indicate she has had the cavitary lesion in her right lung at least since that time. We will now take her out of isolation and stop the sputum collections for AFB. (4) Hyperglycemia Status: Resolved Assessment & Plan: She did have an elevated glucose at admission, but it has come down without intervention. Her HgbA1C is 5.7, She will need to follow up with primary care after discharge. (5) Elevated total protein Status: Acute Assessment & Plan: Total protein was 10.1 with an albumin of 3.6. Serum protein electrophoresis is still pending. Even after IV fluids differential is still >5gms. Significant concern for multiple myeloma/macroglobulinemia. CRP elevated. (6) Dementia Status: Chronic Assessment & Plan: She is chronically on Aricept which will be held for now. (7) Sjogrens syndrome Status: Chronic Assessment & Plan: This is likely contributing to the gagging episodes. ST recommends dysphagia 2 diet , wet and chopped. No changes in liquid thickness recommended. (8) Dysphagia Assessment & Plan: See above. (9) Hypothyroid Status: Chronic Assessment & Plan: TSH elevated. We did increase levothyroxine dose to 50mcg daily. Recheck TSH in 4-6 weeks. She does have a thyroid nodule seen on the CT. Will need to have that evaluated as an outpatient. (10) Hyperlipemia Status: Chronic Assessment & Plan: Will hold her chronic pravastatin. CPK in normal range. Time Spent on Plan of Care: < 30 min Exam Sepsis Risk: No Definite Risk KAILEE FLOWER MD Jul 09, 2017 12:36
--- NOTE | 2017-07-09 13:14 | Hospitalist Depart ---
Discharge Summary Reason for Hosp/Final Diag: (1) Weakness generalized Status: Acute Hospital Course & Plan: She presented with progressive weakness over the last couple of weeks and poor appetite. The day of admission, she couldn't get up on her own and she had a gagging episode. This is likely multifactorial, but concerned about a failure to thrive at home. She was given IV fluids. She had an elevated WBC (now normal), normal CPK, cavitary lesion on CT (unchanged from previous), hyperglycemia (now resolved), and a very elevated total protein. She will be discharged to [facility] for OT/PT. (2) Atrial flutter Status: Acute Hospital Course & Plan: She is asymptomatic. [id number] score of 3. She did convert back to sinus rhythm. Will check an echocardiogram. She currently is on Lovenox 40mg a day for prophylaxis. Will hold off on chronic anticoagulation for now, but if she has recurrent episodes, will need to consider starting. (3) Cavitary lesion of lung Status: Acute Hospital Course & Plan: This is likely related to her previous "yeast infection " of the right lung several years ago that was resected. 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 Her PPD is negative, but she will need a "two-step" ( placed on 07/12/17). She has not had any morning sputum, so we have been unable to do AFB smears/cultures. Report of a CT scan of her chest from 2008 does indicate she has had the cavitary lesion in her right lung at least since that time. We will now take her out of isolation and stop the sputum collections for AFB. (4) Hyperglycemia Status: Resolved Hospital Course & Plan: She did have an elevated glucose at admission, but it has come down without intervention. Her HgbA1C is 5.7, She will need to follow up with primary care after discharge. (5) Elevated total protein Status: Acute Hospital Course & Plan: Total protein was 10.1 with an albumin of 3.6. Serum protein electrophoresis is still pending. Even after IV fluids differential is still >5gms. Significant concern for multiple myeloma/macroglobulinemia. CRP elevated. (6) Dementia Status: Chronic Hospital Course & Plan: She is chronically on Aricept. (7) Sjogrens syndrome Status: Chronic Hospital Course & Plan: This is likely contributing to the gagging episodes. ST recommends dysphagia 2 diet , wet and chopped. No changes in liquid thickness recommended. (8) Dysphagia Hospital Course & Plan: See above. (9) Hypothyroid Status: Chronic Hospital Course & Plan: TSH elevated. We did increase levothyroxine dose to 50mcg daily. Recheck TSH in 4-6 weeks. She does have a thyroid nodule seen on the CT. Will need to have that evaluated as an outpatient. (10) Hyperlipemia Status: Chronic Hospital Course & Plan: She is on chronic treatment with pravastatin. Departure Weight (Pounds): 111 Weight (Ounces): 8.0 Result Diagram: 07/09/1753307/09/17533 Condition: Improved [facility] Dis[facility] Instructions Home Meds Reported Medications Donepezil Hcl (DONEPEZIL HCL) 5 Mg Tablet, 5 MG PO QDAY, TAB 07/05/17 Levothyroxine Sodium (LEVOTHYROXINE SODIUM) 50 Mcg Tablet, 25 MCG PO QDAY, TAB 07/05/17 Pravastatin Sodium (PRAVACHOL) 20 Mg Tablet, 20 MG PO QDAY, TAB 07/05/17 Diet: Diabetic Activity: With Walker Special Instructions: Venous Thromboembolism Antithrombotics Is Pt On Any Antithrombotics?: No CHARLIE HAMMOND Jul 09, 2017 13:14
== END 2017-07-09 13:30 | DRG 948 ==
LOC: ER 14:20 → MED 18:21
PROVIDERS: ADMIT Internal Medicine; ATTEND Internal Medicine
DX: R53.1 Weakness (principal); I48.92 Unspecified atrial flutter; Z68.1 Body mass index [BMI] 19.9 or less, adult; J98.4 Other disorders of lung; R73.9 Hyperglycemia, unspecified; F03.90 Unspecified dementia, unspecified severity, without behavioral disturbance, psychotic disturbance, mood disturbance, and anxiety; M35.00 Sjogren syndrome, unspecified; R13.11 Dysphagia, oral phase; E03.9 Hypothyroidism, unspecified; E04.1 Nontoxic single thyroid nodule; E78.5 Hyperlipidemia, unspecified; R62.7 Adult failure to thrive; Z90.2 Acquired absence of lung [part of]; Z86.19 Personal history of other infectious and parasitic diseases; Z90.49 Acquired absence of other specified parts of digestive tract; Z90.89 Acquired absence of other organs; R63.0 Anorexia; E86.0 Dehydration
CPT/HCPCS: 36415; 36416; 71045; 71275; 80162; 81001; 82040; 82247; 82310; 82374; 82435; 82550; 82565; 82784; 82947; 82948; 83036; 83605; 83880; 84075; 84132; 84134; 84155; 84160; 84165; 84295; 84443; 84450; 84460; 84484; 84520; 85025; 85379; 85651; 86140; 86334; 86580; 87040; 87502; 93005; 93306; 96360; 96361; 97162; 97166; 99285; A4353; J1160; J1650; J3490; J7030; J7040; J7050; Q9967

== ENCOUNTER → 2017-07-05 | Outpatient (CLI) | payer MEDICARE ==
[~2017-07-05] MED LIST: DONE5TAB29 PO; LEVO50TA86 PO; PRAV20TA65 PO
[2017-07-06 14:32] VITALS: BMI 19.1
== END ==
LOC: AMB 13:48
PROVIDERS: ATTEND Nurse Practitioner
DX: R53.1 Weakness (principal)
CPT/HCPCS: A0425; A0427

== ENCOUNTER 2017-07-09 13:30 | Inpatient (IN) | payer MEDICARE ==
[2017-07-06 14:32] VITALS: Ht 162.6 cm; Wt 51.4 kg
[~2017-07-09] VITALS: Ht 162.6 cm; Wt 51.4 kg
--- NOTE | 2017-07-09 14:40 | Consultant Pharmacy Review ---
Lab Clerk Review Medication Review Do All Mecications have a Diag: Yes Beers Criteria Medication 2014 Sliding Scale Insulin: Slidin Scale Insulin (SS LISPRO) Other General Cautions Lexicomp Interaction Analysis A = No known interaction C = Monitor therapy X = Avoid combination B = No action needed D = Consider therapy modification Drugs in this analysis: Acetaminophen; Donepezil; Insulin Lispro; Levothyroxine ; Lovenox; Pravachol No interactions of Risk Level A or greater identified. Created on July 09, 2017 1:32:46 PM PST Pneumococcal Vaccine HX Pneumo Vac ([id number]): No HX Pneumo Vac (Pneumovax): No Comments Regarding the Review Annual TSH, periodic LFTs. Patient received the flu vaccine 02/17 ; pneumococcal vaccination status unknown. KAILEE XIONG Jul 09, 2017 14:40
[2017-07-09 16:30] VITALS: BP 128/74
[2017-07-09] MEDS: PRAVASTATIN SOD 20 MG TAB PO SCH (20:32)
[2017-07-10] MEDS: LEVOTHYROXINE SOD 0.05 MG TAB PO SCH (05:58)
[2017-07-10 08:00] VITALS: BP 148/89
[2017-07-10] MEDS: DONEPEZIL HCL 5 MG TAB PO SCH (09:41)
[2017-07-10] MEDS: ENOXAPARIN 40 MG/0.4ML SYR SC SCH (09:41)
--- NOTE | 2017-07-10 11:43 | OT ECF NOTE ---
Type of Note: Initial Note Primary Medical Diagnosis: Generalized weakness Occupational Therapy Evaluation Date: 07/10/17 SUBJECTIVE: Prior Hospitalization: [facility] 07/05/17 thru 07/09/17 Prior Level of Function: Prior to admission, pt received assistance from spouse for dressing, bathing and IADLs. She reports using no AD at baseline and (I)ly completing toileting. Pt oriented to self. Not oriented to time, place, or current situation. *Pt is on a dysphagia 2 diet (wet/chopped), regular thin liquids okay* Prior Living Status: Apartment Spouse Assist by family Community Services: No known needs Home Accessibility: Stairs with rails Equipment Owned: Toilet riser Medical Complications/Past Medical History: Dementia, atrial flutter, cavitary lesion of lung, hyperglycemia, hypothyroid, hyperlipemia, Sjogrens syndrome. Pain Scale (0-10): Pt reporting no pain or discomfort at time of evaluation OBJECTIVE: Strength: MMT: Right Left Shoulder Flexion WFL WFL Elbow Flexion WFL WFL Wrist Extension WFL WFL Licensed Physical Therapy Assistant WFL WFL (5= normal, 4= good, 3= fair, 2= poor, 1= trace) ROM: Both upper extremities, WFL Sensation: Intact, No concerns Functional Transfer: Assistive Device: Front wheeled walker, Gait belt Transfer Ability: Minimum assistance, 1-person assist. V/c's for safety with RW ADL: Upper body dressing: Assistive device: None Upper body dressing ability: Set-up Lower body dressing: Assistive device: None Lower body dressing ability: Moderate assistance Toileting: Assistive device: Raised toilet seat Toileting ability: Maximum assistance Grooming/hygiene: Standing Assistive device: None Grooming ability: CGA Bathing: Assistive device: None Bathing ability: Not tested Standardized Assessment: Ender Index of Activities of Daily Livin/20 at initial evaluation (). ASSESSMENT: April presents to [facility] with weakness limiting her ability to engage in ADLs at [facility]. She currently requires Min A for sit<>stand transfers, Max A for toileting, and CGA ambulation with RW. She has a flight of stairs to enter her apartment and reports independence with toileting prior to admission. Pt is oriented to self, not oriented to place, time, or situation. Pt's spouse has reported this is near her baseline cognitive function. This pt will benefit from skilled OT services to improve strength for engagement in ADLs prior to discharge home with assist from spouse. Problem List/Current Limitations: Decreased activity tolerance Decreased strength Decreased balance Poor trunk/head control Poor safety awareness Confusion Short Term Goals: 1) Pt will be Min A UB/LB dressing. 2) Pt will be Min A toileting. 3) Pt will be SBA grooming/hygiene. 4) Pt will be Min A shower task. 5) Pt Ender Index of ADLs score will improve by 2 points. Assisted Goals: Return home with assist from spouse and HH services Patient Goals: Pt with difficulty reporting goals secondary to cognition Rehabilitation Prognosis: Good Barriers to Discharge: Dementia PLAN: The patient will benefit from skilled occupational therapy services 5 times per week for 2 weeks including: Ther ex ADL training Safety training Ther act IADL training Transfer training Adaptive equip training Bed mobility Energy conservation Thank you for this referral. If you have any questions, concerns, or comments about this report or plan, please contact me at . Nelli Garcia MS, OTR/L Occupational Therapist LINDY
--- NOTE | 2017-07-10 12:59 | Medical Nutrition Therapy ---
Nutrition Anthropometrics Height (Inches): 64 Weight (Pounds): 117 Weight (Calculated Kilograms): 53.070 BMI Calculated: 19.05 Dimitris Nutrition Score: Probably Inadequate Dimitris Nutrition Risk Score: 14 Dietary Referral Nutrition Risk Factors: Diff. Swallowing Nutrition Risk Comment: Physical Findings Physical Appearance: WNR Skin Appearance Skin Appearance: Edema Edema Location Modifier: Both Edema Location: Ankle Type of Edema: Degree of Edema: Gastrointestinal Symptoms GI Symtoms: Tube Present: Bowel Sounds: Recent Bowel Pattern: Incontinent Stool Characteristics: Nutritional Diagnosis Nutritional Risk Acuity 2: Pr Appetite > 3d, Swallowing Problem Past Medical History: Dementia, dysphagia Nutritional Acuity: 2-Moderate Nutrition Diagnosis: Swallowing Difficulties Nutrition Etiology: Physiological Causes Nutrition Problem/Etiology/Sym: AEB oral phase dysphagia per ST elval Energy Requirement: 1275 (M- StJ) Protein Requirement: 53 (1gm/kg) Fluid Requirement: 1500 (30,l/kg) Diet Type: Diet as Tolerated DIDIER/REG Nutrition Intervention: HS snack, Between meal supplement, Change diet Food Likes: Vanilla Ensure, Peaches and 2% Milk Additional Diet Restrictions: PROVIDE SOFT, MOIST, [id number] Diet Comment To RSA: OFFER NUTR SUPPLMENTS Nutrition Monitoring & Eval Nutrition Goals: Eat 75-100% Meal RD Patient Assessment Time: [address] Assessment Type: RD Assessment Patient Nutrition Acuity: 2-Moderate Follow Up Date: Jul 14, 2017 Nutritional Comment: 07/10 Pt admitted for weakness. Pt has been identified with oral stage dysphaia per St. Pt currently on Reg diet and eating 50%. Recommend change to dyspagia 2 with ground meats and moist foods. Wt 111.5# on medical unit 07/06. Curretn bedscale wt 117#- a 5.4% wt gain in 4 days. Pt has nonpitting ankle edema. Will monitor if wt gain was r/t error in scale or possibly edema. Alb 2.9, Prealb 19.5- both sligthly low. Will offer nutr supplment. BG mildly elevated up to 140's, A1c of 5.7 in prediabetes range. will cont to monitor and encourage intake. CHRISTINA CHESTER Jul 10, 2017 12:59
[2017-07-10 15:35] VITALS: BP 116/72
--- NOTE | 2017-07-10 15:53 | ECF H&P BLANK ---
[facility] H&P UPDATE History of Present Illness History of Present Illness 77yo female with a h/o dementia and "yeast infection" of the lung who was brought to the ER for progressive weakness. Her significant other gives most of the history, but she gives some.For the last couple of weeks, she has had a decreased appetite and weakness. Today, she couldn't stand on her own. She also had an episode where she gagged on food. She denies night sweats, cough, fever, diarrhea, dysuria, focal weakness. There have been no new medications. About 5-6 years ago, she had a lung surgery on the right for "yeast infection". History Problems: (1) Hypothyroid Status: Chronic (2) Hyperlipemia Status: Chronic (3) Dementia Status: Chronic (4) Sjogrens syndrome Status: Chronic (5) History of cholecystectomy (6) History of tonsillectomy (7) History of lung surgery Home Meds Reported Medications Donepezil Hcl (DONEPEZIL HCL) 5 Mg Tablet, 5 MG PO QDAY, TAB 07/05/17 Levothyroxine Sodium (LEVOTHYROXINE SODIUM) 50 Mcg Tablet, 25 MCG PO QDAY, TAB 18 Pravastatin Sodium (PRAVACHOL) 20 Mg Tablet, 20 MG PO QDAY, TAB 07/05/17 Allergies: Coded Allergies: No Known Drug Allergies (Unverified , 07/05/17) Other Social/Family Hx She lives with her significant other in an apartment in [place]. 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 Hx Smoking: No Hx Alcohol Use: No Review of Systems All Systems Reviewed/Normal: Yes, Except as Noted Exam Vital Signs Vital Signs Date Time Temp Pulse Resp B/P (MAP) Pulse Ox O2 Delivery O2 Flow Rate FiO2 07/05/17 17:30 89 26 144/73 (96) 97 07/05/17 15:58 3.0 07/05/17 14:14 97.8 General Appearance: Alert, Awake, No Acute Distress Neuro: No Gross deficits ENT: Oropharynx Clear, Posterior Pharynx Clear, Other (Tacky mucus membranes.) Cardiovascular: Regular Rate and Rhythm Respiratory: Clear to Auscultation GI: Abd Soft and Non-Tender Extremities: No Edema Integumentary: No Jaundice, No Cyanosis Medical Decision Making Data Points Result Diagram: 07/05/17 1404 07/05/17 1404 Item Value Date Time White Blood Count 11.5 k/uL H 07/05/17 1404 Hemoglobin 13.5 g/dL 07/05/17 1404 Neutrophils (%) (Auto) 76.8 % H 07/05/17 1404 Lymphocytes (%) (Auto) 14.8 % L 07/05/17 1404 Monocytes (%) (Auto) 7.9 % 07/05/17 1404 Eosinophils (%) (Auto) 0.1 % L 07/05/17 1404 Lactate 0.9 mmol/L 07/05/17 1748 B-Type Natriuretic Peptide 229 pg/ml H 07/05/17 1404 Total Protein 10.1 gm/dl H 07/05/17 1404 Albumin 3.6 g/dl 07/05/17 1404 Total Bilirubin 0.6 mg/dl 07/05/17 1404 Aspartate Amino Transf (AST/SGOT) 45 U/L H 07/05/17 1404 Alanine Aminotransferase (ALT/SGPT) 30 U/L 07/05/17 1404 Alkaline Phosphatase 110 U/L 07/05/17 1404 Troponin I < 0.012 ng/ml 07/05/17 1404 Influenza Virus Type A (PCR) Negative 07/05/17 1441 Influenza Virus Type B (PCR) Negative 07/05/17 1441 Urine WBC 1 /HPF 07/05/17 1500 Urine RBC 2 /HPF 07/05/17 1500 Urine Squamous Epithelial Cells None /LPF 07/05/17 1500 Urine Bacteria Negative /HPF 07/05/17 1500 Urine Hyaline Casts Many /LPF H 07/05/17 1500 Urine Leukocyte Esterase Negative 07/05/17 1500 Urine Nitrite Negative 07/05/17 1500 D-Dimer Quantitative (PE/DVT) 10.24 ug/ml H 07/05/17 1404 EKG / Imaging EKG Interpretation Vent. Rate : 088 BPM Atrial Rate : 088 BPM P-R Int : 148 ms QRS Dur : 096 ms QT Int : 380 ms P-R-T Axes : 083 065 076 degrees QTc Int : 459 ms Normal sinus rhythm Normal ECG No previous ECGs available Confirmed by MAITE MUNOZ ([id number]) on 07/05/2017 3:07:51 PM Imaging CXR - 1. Increased interstitial opacities may be secondary to edema, interstitial pneumonitis or less likely worsening chronic interstitial disease. Chest CTA - 1. No pulmonary embolus. 2. Age-indeterminate nonspecific cavitary consolidation in the right upper lobe measures 2.8 x 2 x 4.2 cm. This may represent the residua of prior TB or fungal infection. An acute TB/fungal infection is felt less likely but cannot be entirely excluded. An acute cavitary bronchopneumonia cannot be excluded. A cavitary malignancy is felt less likely but cannot be entirely excluded and follow-up chest CT 1-2 months is recommended to evaluate for persistence/ stability. 3. Scattered pulmonary nodules in the right upper lobe, right middle and right lower lobes which may represent the residua of prior infectious or inflammatory process. An acute small airways infection or metastatic nodularity are felt less likely but cannot be entirely excluded. Attention to these nodules on follow-up. 4. Subacute to chronic nonhealed partially imaged L1 wedge compression fracture. Correlate with exam. 5. 1.6 cm left thyroid nodule. Given size follow up ultrasound may be warranted for further characterization. Assessment and Plan Problems: (1) Weakness generalized Status: Acute Assessment & Plan: She presented with progressive weakness over the last couple of weeks and poor appetite. Today, she couldn't get up on her own and she had a gagging episode. This is likely multifactorial. She appears mildly dehydrated. She has an elevated WBC, cavitary lesion on CT, hyperglycemia, and a very elevated total protein. See below. Will hydrate and ask OT/PT to evaluate. (2) Cavitary lesion of lung Status: Acute Assessment & Plan: This is likely related to her previous "yeast infection" of the right lung about 5-6 years ago that was resected. 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 We will try to get the discharge summary from the hospitalization to help clarify. Also, a Tailor'S Aide will be in the outpatient clinics tomorrow from the system and will be able to look at those records. (3) Hyperglycemia Status: Acute Assessment & Plan: Check a HgA1c, AC/HS glucose and cover with SSI level 2. (4) Elevated total protein Status: Acute Assessment & Plan: TP is 10.1 and the albumin is 3.6. Will check serum peptide electrophoresis for concern of multiple myeloma and check CRP. (5) Dementia Status: Chronic Assessment & Plan: She is chronically on Aricept which will be held for now. (6) Sjogrens syndrome Status: Chronic Assessment & Plan: This is likely contributing to the gagging episodes. Will ask ST to evaluate. (7) Hypothyroid Status: Chronic Assessment & Plan: TSH pending. Continue levothyroxine. She does have a thyroid nodule seen on the CT. Will need to have that evaluated as an outpatient. (8) Hyperlipemia Status: Chronic Assessment & Plan: Will hold her chronic pravastatin and check a CPK. Venous Thromboembolism Antithrombotics Is Pt On Any Antithrombotics?: No Exam Sepsis Risk: No Definite Risk MAITE MUNOZ MD Jul 05, 2017 18:56 <Electronically signed by MAITE MUNOZ MD> D/ 55 55 55 PETELARS/LONG CC: Patient will be admitted to [facility] for ongoing rehabilitative therapy. JOSELITO FLOWER MD Jul 10, 2017 15:53
[2017-07-10] MEDS: predniSONE 20 MG TAB PO SCH (17:32)
[2017-07-10] MEDS: PRAVASTATIN SOD 20 MG TAB PO SCH (20:31)
[2017-07-11] MEDS: LEVOTHYROXINE SOD 0.05 MG TAB PO SCH (05:57)
[2017-07-11 07:44] VITALS: BP 109/56
[2017-07-11] MEDS: ENOXAPARIN 40 MG/0.4ML SYR SC SCH (08:59)
[2017-07-11] MEDS: DONEPEZIL HCL 5 MG TAB PO SCH (08:59)
--- NOTE | 2017-07-11 13:37 | PT ECF NOTE ---
Type of Note: Initial Note Primary Medical Diagnosis: Weakness following acute admission. Please see [facility] for records full description of prior hospital stay. Physical Therapy Evaluation Date: 07/10/17 SUBJECTIVE: Prior Hospitalization: [facility] acute 07/05-07/09/17 Prior Level of Function: Per Pt's , Pt was independent with functional mobility including ascending/descending flight of stairs to their apartment and was able to ambulate without the use of an assistive device. Pt is confused at baseline. Prior Living Status: Apartment, Spouse, Assist by Community Services: No known needs Home Accessibility: Flight of stairs with rails Equipment Owned: Toilet riser, Pt's states he has access to a walker if needed Medical Complications/Past Medical History: Complex medical history. Please see [facility] Psychosocial Support: Supportive Pain Scale (0-10): Pt denies and does not indicate any pain. OBJECTIVE: Bed Mobility: not observed during eval Transfers: Moderate assistance from chair Assistive Device: Front wheeled walker Gait: [id number] Assistive device: Front wheeled walker Timed Up and Go (>12 seconds indicated increased risk for falls): Pt unable to stand independently. 10 meter walk test (0.6m/second cannot function independently): Pt required 45 seconds to ambulate 10 meters ASSESSMENT: Pt presents with decreased independence with functional mobility compared to baseline functioning. Pt's gait speed indicates increased risk for falls and decreased ability to care for self at home. Pt will benefit from skilled PT for functional mobility and endurance training in order to increase tolerance to functional activities. Problem List/Current Limitations: Decreased activity tolerance, Decreased strength, Generalized weakness, Poor safety awareness, Memory deficits, Decreased problem solving, Confusion Short Term Goals: 1. Mod I bed mobility. 2. Mod I transfers. 3. Mod I gait x 200' with least restrictive device. 4. Ascend/descend 12 stairs with 1 rail and SBA. Auto Hiker Goals: Return home to care of her Patient Goals: Return home Rehabilitation Prognosis: Good Barriers for Discharge: Pt's cognition may limit carryover of new tasks such as using an assistive device for ambulation. PLAN: The patient will benefit from skilled physical therapy services 5 times per week for 2 weeks including: Therapeutic Exercise, Therapeutic Activities, Transfer Training, Gait Training, Stair Training, Manual Therapy, ADL's, Safety Training, Neuromuscular Re-educ., Pt/Caregiver Training, Bed Mobility Thank you for this referral. If you have any questions, concerns, or comments about this report or plan, please contact me at . Helena Escobedo, PT, DPT, GCS MTDD
[2017-07-11 16:43] VITALS: BP 129/59
[2017-07-11] MEDS: predniSONE 20 MG TAB PO SCH (17:25)
[2017-07-11] MEDS: INSULIN HUM LISPRO 100 UN/ML 3 ML VIAL SUBQ PRN (17:25)
[2017-07-11] MEDS: ACETAMINOPHEN 325 MG TAB PO PRN (20:48)
[2017-07-11] MEDS: PRAVASTATIN SOD 20 MG TAB PO SCH (20:48)
[2017-07-12] MEDS: LEVOTHYROXINE SOD 0.05 MG TAB PO SCH (06:39)
[2017-07-12 07:40] VITALS: BP 127/79
[2017-07-12] MEDS: ENOXAPARIN 40 MG/0.4ML SYR SC SCH (08:44)
[2017-07-12] MEDS: DONEPEZIL HCL 5 MG TAB PO SCH (08:44)
[2017-07-12 15:10] VITALS: BP 129/69
[2017-07-12] MEDS: predniSONE 20 MG TAB PO SCH (17:44)
[2017-07-12] MEDS: ACETAMINOPHEN 325 MG TAB PO PRN (20:52)
[2017-07-12] MEDS: PRAVASTATIN SOD 20 MG TAB PO SCH (20:52)
[2017-07-13] MEDS: LEVOTHYROXINE SOD 0.05 MG TAB PO SCH (06:22)
[2017-07-13 07:30] VITALS: BP 129/60
[2017-07-13] MEDS: DONEPEZIL HCL 5 MG TAB PO SCH (09:04)
[2017-07-13] MEDS: ENOXAPARIN 40 MG/0.4ML SYR SC SCH (09:04)
[2017-07-13 15:17] VITALS: BP 120/65
[2017-07-13] MEDS: predniSONE 20 MG TAB PO SCH (17:08)
[2017-07-13] MEDS: ACETAMINOPHEN 325 MG TAB PO PRN (21:11)
[2017-07-13] MEDS: PRAVASTATIN SOD 20 MG TAB PO SCH (21:11)
[2017-07-14] MEDS: LEVOTHYROXINE SOD 0.05 MG TAB PO SCH (06:11)
[2017-07-14 07:30] VITALS: BP 127/61
[2017-07-14] MEDS: ENOXAPARIN 40 MG/0.4ML SYR SC SCH (08:49)
[2017-07-14] MEDS: DONEPEZIL HCL 5 MG TAB PO SCH (08:49)
--- NOTE | 2017-07-14 14:01 | Medical Nutrition Therapy ---
Nutrition Anthropometrics Height (Inches): 64 Weight (Pounds): 117 Weight (Calculated Kilograms): 53.070 BMI Calculated: 19.05 Dimitris Nutrition Score: Probably Inadequate Dimitris Nutrition Risk Score: 15 Dietary Referral Nutrition Risk Factors: Diff. Swallowing Nutrition Risk Comment: Physical Findings Physical Appearance: WNR Skin Appearance Skin Appearance: Edema Edema Location Modifier: Both Edema Location: Lower Extremity Type of Edema: Degree of Edema: Gastrointestinal Symptoms GI Symtoms: Tube Present: Bowel Sounds: Recent Bowel Pattern: Incontinent Stool Characteristics: Nutrition/Food History Decreased Appetite Nutritional Diagnosis Nutritional Risk Acuity 2: Pr Appetite > 3d, Swallowing Problem Past Medical History: Dementia, dysphagia Nutritional Acuity: 2-Moderate Nutrition Diagnosis: Swallowing Difficulties Nutrition Etiology: Physiological Causes Nutrition Problem/Etiology/Sym: AEB oral phase dysphagia per ST elval Energy Requirement: 1275 (M- StJ) Protein Requirement: 53 (1gm/kg) Fluid Requirement: 1500 (30,l/kg) Diet Type: Diet as Tolerated DIDIER/REG Nutrition Intervention: HS snack, Between meal supplement, Change diet Food Likes: Vanilla Ensure, Peaches and 2% Milk Additional Diet Restrictions: PROVIDE SOFT, MOIST, [id number] Diet Comment To RSA: OFFER NUTR SUPPLMENTS Nutrition Monitoring & Eval Nutrition Goals: Eat 75-100% Meal RD Patient Assessment Time: [address] Assessment Type: RD Re-Assessment Patient Nutrition Acuity: 2-Moderate Follow Up Date: Jul 21, 2017 Nutritional Comment: 07/10 Pt admitted for weakness. Pt has been identified with oral stage dysphaia per St. Pt currently on Reg diet and eating 50%. Recommend change to dyspagia 2 with ground meats and moist foods. Wt 111.5# on medical unit 07/06. Curretn bedscale wt 117#- a 5.4% wt gain in 4 days. Pt has nonpitting ankle edema. Will monitor if wt gain was r/t error in scale or possibly edema. Alb 2.9, Prealb 19.5- both sligthly low. Will offer nutr supplment. BG mildly elevated up to 140's, A1c of 5.7 in prediabetes range. will cont to monitor and encourage intake. 07/14 Glu 100. No other new labs or new wt. Consuming 100% of meals. Taking small amounts of nutritional supplement. Follow intake, labs, wt, etc. LIZ EDWARDS Jul 14, 2017 14:01
[2017-07-14 16:10] VITALS: BP 107/64
[2017-07-14] MEDS: predniSONE 20 MG TAB PO SCH (16:47)
[2017-07-14] MEDS: PRAVASTATIN SOD 20 MG TAB PO SCH (20:17)
[2017-07-15] MEDS: LEVOTHYROXINE SOD 0.05 MG TAB PO SCH (05:58)
[2017-07-15 06:46] LABS: PLATELET COUNT, AUTOMATED 370 K/uL (150-450)
[2017-07-15 08:17] VITALS: BP 161/86
[2017-07-15] MEDS: DONEPEZIL HCL 5 MG TAB PO SCH (08:57)
[2017-07-15] MEDS: ENOXAPARIN 40 MG/0.4ML SYR SC SCH (08:58)
[2017-07-15 16:00] VITALS: BP 112/58
--- NOTE | 2017-07-15 16:02 | Hospitalist Progress Note ---
Physical Exam Vital Signs Date Time Temp Pulse Resp B/P (MAP) Pulse Ox O2 Delivery O2 Flow Rate FiO2 07/15/17 10:30 91 Room Air 07/15/17 08:17 98.2 73 16 161/86 (111) 07/13/17 21:11 1.0 Intake and Output 07/16/17 07:00 # Voids 2 # Bowel Movements 1 Result Diagram: 07/15/17 0615 07/15/17 0615 Assessment and Plan Problems: (1) Weakness generalized Status: Acute Assessment & Plan: She presented with progressive weakness over the last couple of weeks and poor appetite. The day of admission, she couldn't get up on her own and she had a gagging episode. This is likely multifactorial, but concerned about a failure to thrive at home. She was given IV fluids on admission. She had an elevated WBC (now normal), normal CPK, cavitary lesion on CT (unchanged from previous), hyperglycemia (now resolved), and a very elevated total protein (see below). She was discharged to [facility] for OT/PT. (2) Atrial flutter Status: Acute Assessment & Plan: She was asymptomatic. [id number] score of 3. She did convert back to sinus rhythm. She had a normal EF on echo which was otherwise unremarkable. She currently is on Lovenox 40mg a day for prophylaxis. Will hold off on chronic anticoagulation for now, but if she has recurrent episodes, will need to consider starting. 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 PPD was negative. (4) Hyperglycemia Status: Resolved Assessment & Plan: She did have an elevated glucose at admission, but it came down without intervention. Her HgbA1C was 5.7, She will need to follow up with primary care after discharge. (5) Elevated total protein Status: Acute Assessment & Plan: Total protein was 10.1 with an albumin of 3.6. Serum protein electrophoresis showed a polyclonal increase in IgG and IgA. Etiology unclear. CRP elevated. ESR 111. There was concern for PMR. She was started on prednisone with decrease in ESR to 94 today. Will wean the prednisone down a bit. Recheck ESR on 07/20. Per UpToDate, her polyclonal gammopathy and elevated ESR could be due to her Sjogren's disease. If she does not have a significant response to prednisone, will wean her off. (6) Dementia Status: Chronic Assessment & Plan: She is chronically on Aricept. (7) Sjogrens syndrome Status: Chronic Assessment & Plan: This is likely contributing to the gagging episodes. ST recommends dysphagia 2 diet , wet and chopped. No changes in liquid thickness recommended. (8) Dysphagia Status: Chronic Assessment & Plan: See above (9) Hypothyroid Status: Chronic Assessment & Plan: TSH elevated. We did increase levothyroxine dose to 50mcg daily. Recheck TSH in 4-6 weeks. She does have a thyroid nodule seen on the CT. Will need to have that evaluated as an outpatient. (10) Hyperlipemia Status: Chronic Assessment & Plan: She is on chronic treatment with pravastatin. Time Spent on Plan of Care: < 30 min KAILEE FLOWER MD Jul 15, 2017 16:02
[2017-07-15] MEDS: INSULIN HUM LISPRO 100 UN/ML 3 ML VIAL SUBQ PRN (17:04)
[2017-07-15] MEDS: predniSONE 20 MG TAB PO SCH (17:23)
[2017-07-15] MEDS: PRAVASTATIN SOD 20 MG TAB PO SCH (21:00)
[2017-07-16] MEDS: LEVOTHYROXINE SOD 0.05 MG TAB PO SCH (05:41)
[2017-07-16 08:00] VITALS: BP 121/67
[2017-07-16] MEDS: DONEPEZIL HCL 5 MG TAB PO SCH (09:18)
[2017-07-16] MEDS: ENOXAPARIN 40 MG/0.4ML SYR SC SCH (09:18)
[2017-07-16 15:50] VITALS: BP 109/64
[2017-07-16] MEDS: predniSONE 20 MG TAB PO SCH (16:50)
[2017-07-16] MEDS: PRAVASTATIN SOD 20 MG TAB PO SCH (21:00)
[2017-07-17] MEDS: LEVOTHYROXINE SOD 0.05 MG TAB PO SCH (05:40)
[2017-07-17 08:00] VITALS: BP 144/75
[2017-07-17] MEDS: DONEPEZIL HCL 5 MG TAB PO SCH (09:23)
[2017-07-17] MEDS: ENOXAPARIN 40 MG/0.4ML SYR SC SCH (09:23)
[2017-07-17] MEDS: predniSONE 20 MG TAB PO SCH (17:47)
[2017-07-17 18:30] VITALS: BP 110/68
[2017-07-17] MEDS: PRAVASTATIN SOD 20 MG TAB PO SCH (20:36)
[2017-07-18] MEDS: LEVOTHYROXINE SOD 0.05 MG TAB PO SCH (06:23)
[2017-07-18 07:40] VITALS: BP 149/91
[2017-07-18] MEDS: DONEPEZIL HCL 5 MG TAB PO SCH (09:08)
[2017-07-18] MEDS: ENOXAPARIN 40 MG/0.4ML SYR SC SCH (09:08)
[2017-07-18 17:30] VITALS: BP 116/67
[2017-07-18] MEDS: predniSONE 20 MG TAB PO SCH (17:41)
[2017-07-18] MEDS: PRAVASTATIN SOD 20 MG TAB PO SCH (20:53)
[2017-07-18] MEDS: ACETAMINOPHEN 325 MG TAB PO PRN (20:53)
[2017-07-19] MEDS: LEVOTHYROXINE SOD 0.05 MG TAB PO SCH (05:39)
[2017-07-19 07:38] VITALS: BP 120/64
[2017-07-19] MEDS: predniSONE 20 MG TAB PO SCH (08:59)
[2017-07-19] MEDS: DONEPEZIL HCL 5 MG TAB PO SCH (08:59)
[2017-07-19] MEDS: ENOXAPARIN 40 MG/0.4ML SYR SC SCH (09:00)
[2017-07-19 16:42] VITALS: BP 120/67
[2017-07-19] MEDS: PRAVASTATIN SOD 20 MG TAB PO SCH (20:43)
[2017-07-19] MEDS: ACETAMINOPHEN 325 MG TAB PO PRN (20:43)
[2017-07-20] MEDS: LEVOTHYROXINE SOD 0.05 MG TAB PO SCH (05:32)
[2017-07-20 06:43] LABS: PLATELET COUNT, AUTOMATED 340 K/uL (150-450)
[2017-07-20 07:30] VITALS: BP 111/55
[2017-07-20] MEDS: predniSONE 20 MG TAB PO SCH (08:33)
[2017-07-20] MEDS: DONEPEZIL HCL 5 MG TAB PO SCH (08:33)
[2017-07-20] MEDS: ENOXAPARIN 40 MG/0.4ML SYR SC SCH (08:33)
[2017-07-20 16:15] VITALS: BP 110/62
--- NOTE | 2017-07-20 16:43 | Medical Nutrition Therapy ---
Nutrition Anthropometrics Height (Inches): 64 Weight (Pounds): 113 Weight (Calculated Kilograms): 51.437 BMI Calculated: 19.05 Dimitris Nutrition Score: Adequate Dimitris Nutrition Risk Score: 17 Dietary Referral Nutrition Risk Factors: Diff. Swallowing Nutrition Risk Comment: Nutritional Diagnosis Nutritional Risk Acuity 2: Pr Appetite > 3d, Swallowing Problem Past Medical History: Dementia, dysphagia Nutritional Acuity: 2-Moderate Nutrition Diagnosis: Swallowing Difficulties Nutrition Etiology: Physiological Causes Nutrition Problem/Etiology/Sym: AEB oral phase dysphagia per ST elval Energy Requirement: 1275 (M- StJ) Protein Requirement: 53 (1gm/kg) Fluid Requirement: 1500 (30,l/kg) Diet Type: Diet as Tolerated DIDIER/REG Nutrition Intervention: HS snack, Between meal supplement, Change diet Food Likes: jameszandra kraigmariano Additional Diet Restrictions: PROVIDE SOFT, MOIST, [id number] Diet Comment To RSA: OFFER NUTR SUPPLMENTS Nutrition Monitoring & Eval Nutrition Goals: Eat 75-100% Meal Nutrition Follow-Up: Poor Intake RD Patient Assessment Time: [address] Assessment Type: RD Re-Assessment Patient Nutrition Acuity: 2-Moderate Follow Up Date: Jul 28, 2017 Nutritional Comment: 07/10 Pt admitted for weakness. Pt has been identified with oral stage dysphaia per St. Pt currently on Reg diet and eating 50%. Recommend change to dyspagia 2 with ground meats and moist foods. Wt 111.5# on medical unit 07/06. Curretn bedscale wt 117#- a 5.4% wt gain in 4 days. Pt has nonpitting ankle edema. Will monitor if wt gain was r/t error in scale or possibly edema. Alb 2.9, Prealb 19.5- both sligthly low. Will offer nutr supplment. BG mildly elevated up to 140's, A1c of 5.7 in prediabetes range. will cont to monitor and encourage intake. 07/14 Glu 100. No other new labs or new wt. Consuming 100% of meals. Taking small amounts of nutritional supplement. Follow intake, labs, wt, etc. 07/20 Intake average 43% with up to 1 nutr supplment/day. Pt refuses multiple meals. No choking reported. Wt is down 3.4%. Will cont to encourage intake and offer nutr supplments. CHRISTINA CHESTER Jul 20, 2017 16:43
[2017-07-20] MEDS: ACETAMINOPHEN 325 MG TAB PO PRN (20:20)
[2017-07-20] MEDS: PRAVASTATIN SOD 20 MG TAB PO SCH (20:20)
[2017-07-21] MEDS: LEVOTHYROXINE SOD 0.05 MG TAB PO SCH (06:46)
[2017-07-21 08:36] VITALS: BP 116/64
[2017-07-21] MEDS: predniSONE 20 MG TAB PO SCH (08:50)
[2017-07-21] MEDS: DONEPEZIL HCL 5 MG TAB PO SCH (08:50)
[2017-07-21] MEDS: ENOXAPARIN 40 MG/0.4ML SYR SC SCH (08:50)
[2017-07-21 17:15] VITALS: BP 118/66
[2017-07-21] MEDS: PRAVASTATIN SOD 20 MG TAB PO SCH (21:00)
[2017-07-22] MEDS: LEVOTHYROXINE SOD 0.05 MG TAB PO SCH (05:18)
[2017-07-22 08:00] VITALS: BP 129/68
[2017-07-22] MEDS: predniSONE 20 MG TAB PO SCH (09:18)
[2017-07-22] MEDS: DONEPEZIL HCL 5 MG TAB PO SCH (09:18)
[2017-07-22] MEDS: ENOXAPARIN 40 MG/0.4ML SYR SC SCH (09:18)
--- NOTE | 2017-07-22 14:06 | Hospitalist Progress Note ---
Subjective Progress Notes Subjective The patient denies pain or new issues. Physical Exam Vital Signs Date Time Temp Pulse Resp B/P (MAP) Pulse Ox O2 Delivery O2 Flow Rate FiO2 07/22/17 13:00 90 Room Air 07/22/17 08:00 98.4 81 16 129/68 (88) 07/21/17 17:15 93.0 Intake and Output 07/23/17 07:00 Intake Total 720 ml Balance 720 ml Intake Oral 720 ml # Voids 1 # Bowel Movements 1 General Appearance: Alert, Awake, No Acute Distress Neuro: Other (Poor short term memory.) Cardiovascular: Regular Rate and Rhythm Respiratory: Clear to Auscultation GI: Soft and Non-Tender Extremities: Warm, Perfused, Other (Feet with dry skin. Few petechiae. No rash. ) Integumentary: Scaly / Dry Skin Psych: Appropriate Mood & Affect Result Diagram: 07/20/1762607/20/17626 Assessment and Plan Problems: (1) Weakness generalized Status: Acute Assessment & Plan: She presented with progressive weakness over for a couple of weeks prior to admission to the medical floor and poor appetite. The day of admission, she couldn't get up on her own and she had a gagging episode. This was felt to be multifactorial, but there was a concern about a failure to thrive at home. She was given IV fluids on admission. She had an elevated WBC (now normal), normal CPK, cavitary lesion on CT (unchanged from previous), hyperglycemia (now resolved), and a very elevated total protein (see below). She was discharged to [facility] for OT/PT. (2) Atrial flutter Status: Acute Assessment & Plan: She was asymptomatic. [id number] score of 3. She did convert back to sinus rhythm. She had a normal EF on echo which was otherwise unremarkable. She currently is on Lovenox 40mg a day for prophylaxis. Will hold off on chronic anticoagulation for now, but if she has recurrent episodes, will need to consider starting. 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 She had a complete work up in the past per old records. PPD on her admission to the medical floor was negative. (4) Hyperglycemia Status: Resolved Assessment & Plan: She did have an elevated glucose at admission, but it came down without intervention. Her HgbA1C was 5.7, She will need to follow up with primary care after discharge. (5) Elevated total protein Status: Acute Assessment & Plan: Total protein was 10.1 with an albumin of 3.6. Serum protein electrophoresis showed a polyclonal increase in IgG and IgA. Etiology unclear. CRP elevated. ESR 111. There was concern for PMR. She was started on prednisone with decrease in ESR initially to 94. The prednisone was weaned down a bit. Recheck ESR on 07/20 remained elevated. Per UpToDate, her polyclonal gammopathy and elevated ESR could be due to her Sjogren's disease. She has not had a significant response to prednisone so will wean her off. She will need close monitoring and further evaluation as an outpatient. Other etiologies for her elevated ESR and CRP may need to be considered if warranted as well. (6) Dementia Status: Chronic Assessment & Plan: She is chronically on Aricept. (7) Sjogrens syndrome Status: Chronic Assessment & Plan: This is likely contributing to the gagging episodes. ST recommends dysphagia 2 diet , wet and chopped. No changes in liquid thickness recommended. (8) Dysphagia Status: Chronic Assessment & Plan: See above (9) Hypothyroid Status: Chronic Assessment & Plan: TSH elevated. We did increase levothyroxine dose to 50mcg daily. Recheck TSH in 4-6 weeks. She does have a thyroid nodule seen on the CT. Will need to have that evaluated as an outpatient. (10) Hyperlipemia Status: Chronic Assessment & Plan: She is on chronic treatment with pravastatin. Time Spent on Plan of Care: < 30 min KAILEE FLOWER MD Jul 22, 2017 14:06
[2017-07-22 16:40] VITALS: BP 121/72
[2017-07-22] MEDS: PRAVASTATIN SOD 20 MG TAB PO SCH (21:00)
[2017-07-23] MEDS: LEVOTHYROXINE SOD 0.05 MG TAB PO SCH (05:37)
[2017-07-23 08:00] VITALS: BP 123/67
[2017-07-23] MEDS ORDERED: predniSONE 5 MG TAB PO SCH (09:00)
[2017-07-23] MEDS: ENOXAPARIN 40 MG/0.4ML SYR SC SCH (09:52)
[2017-07-23] MEDS: DONEPEZIL HCL 5 MG TAB PO SCH (09:53)
[2017-07-23] MEDS: predniSONE 5 MG TAB PO SCH (09:53)
[2017-07-23 17:25] VITALS: BP 121/77
[2017-07-23] MEDS: PRAVASTATIN SOD 20 MG TAB PO SCH (20:51)
[2017-07-24] MEDS: LEVOTHYROXINE SOD 0.05 MG TAB PO SCH (06:00)
[2017-07-24 08:00] VITALS: BP 111/66
[2017-07-24] MEDS: predniSONE 5 MG TAB PO SCH (09:00)
[2017-07-24] MEDS: DONEPEZIL HCL 5 MG TAB PO SCH (09:00)
[2017-07-24] MEDS: ENOXAPARIN 40 MG/0.4ML SYR SC SCH (09:01)
[2017-07-24] MEDS ORDERED: LEVO50TA86 PO (10:36)
[2017-07-24] MEDS ORDERED: ACET-2007 PO (10:36)
--- NOTE | 2017-07-24 10:56 | OT ECF NOTE ---
Type of Note: Discharge Note Primary Medical Diagnosis: Generalized weakness Occupational Therapy Evaluation Date: 07/10/17 SUBJECTIVE: Prior Hospitalization: [facility] 07/05/17 thru 07/09/17 Prior Level of Function: Prior to admission, pt received assistance from spouse for dressing, bathing and IADLs. She reports using no AD at baseline and (I)ly completing toileting. Pt oriented to self. Not oriented to time, place, or current situation. *Pt is on a dysphagia 2 diet (wet/chopped), regular thin liquids okay* Prior Living Status: Apartment Spouse Assist by family Community Services: No known needs Home Accessibility: Stairs with rails Equipment Owned: Toilet riser Medical Complications/Past Medical History: Dementia, atrial flutter, cavitary lesion of lung, hyperglycemia, hypothyroid, hyperlipemia, Sjogrens syndrome. Pain Scale (0-10): Pt reporting no pain or discomfort at time of evaluation OBJECTIVE: Strength: MMT: Right Left Shoulder Flexion WFL WFL Elbow Flexion WFL WFL Wrist Extension WFL WFL Banana Grader WFL WFL (5= normal, 4= good, 3= fair, 2= poor, 1= trace) ROM: Both upper extremities, WFL Sensation: Intact, No concerns Functional Transfer: Assistive Device: Front wheeled walker, Gait belt Transfer Ability: Pt is inconsistent with transfers requiring CGA to Mod A for sit<>stands. Requires frequent v/c's for sequencing sit<>stands and safety negotiating RW. ADL: Upper body dressing: Assistive device: None Upper body dressing ability: Set-up Lower body dressing: Assistive device: None Lower body dressing ability: CGA LB dressing with occasional Min A to don tennis shoes Toileting: Assistive device: Raised toilet seat Toileting ability: CGA with occasional increased assist secondary to incontinence Grooming/hygiene: Standing Assistive device: None Grooming ability: SBA Bathing: Assistive device: None Bathing ability: Not tested Standardized Assessment: Ender Index of Activities of Daily Livin/20 at initial evaluation (). 01/21 at discharge (07/24/17) ASSESSMENT: April presented to [facility] with weakness limiting her ability to engage in ADLs at [facility]. She plans to discharge to [facility] for continued skilled services. Problem List/Current Limitations: Decreased activity tolerance Decreased strength Decreased balance Poor trunk/head control Poor safety awareness Confusion Short Term Goals: 1) Pt will be Min A UB/LB dressing. Goal not met. 2) Pt will be Min A toileting. Goal met. 3) Pt will be SBA grooming/hygiene. Goal met. 4) Pt will be Min A shower task. Goal not addressed. 5) Pt Ender Index of ADLs score will improve by 2 points. Goal met. 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 If you have any questions, concerns, or comments about this report or plan, please contact me at . Nelli Garcia MS, OTR/L Occupational Therapist LINDY
--- NOTE | 2017-07-24 10:56 | Hospitalist Depart ---
Discharge Summary Reason for Hosp/Final Diag: (1) Weakness generalized Status: Acute Hospital Course & Plan: She presented with progressive weakness over a couple of weeks prior to admission to the medical floor and poor appetite. The day of admission, she couldn't get up on her own and she had a gagging episode. This was felt to be multifactorial, but there was a concern about a failure to thrive at home. She was given IV fluids on admission. She had an elevated WBC (now normal), normal CPK, cavitary lesion on CT (unchanged from previous and previously worked up), hyperglycemia (now resolved), and a very elevated total protein (see below). She was [facility] to [facility] for OT/PT. (2) Atrial flutter Status: Acute Hospital Course & Plan: She was asymptomatic. [id number] score of 3. She did convert back to sinus rhythm. She had a normal EF on echo which was otherwise unremarkable. She was on Lovenox 40mg a day for prophylaxis while on ECF. She was not placed on chronic anticoagulation, but if she has recurrent episodes, will need to consider starting as an outpatient. 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 She had a complete work up in the past per old records. PPD on her admission to the medical floor was negative. (4) Hyperglycemia Status: Resolved Hospital Course & Plan: She did have an elevated glucose at admission, but it came down without intervention. Her HgbA1C was 5.7, She will need to follow up with primary care provider of her choice after discharge. (5) Elevated total protein Status: Acute Hospital Course & Plan: Total protein was 10.1 with an albumin of 3.6. Serum protein electrophoresis showed a polyclonal increase in IgG and IgA. Etiology unclear. CRP elevated. ESR 111. There was concern for PMR. She was started on prednisone with decrease in ESR initially to 94. The prednisone was weaned down a bit. Recheck ESR on 07/20 remained elevated. Per UpToDate, her polyclonal gammopathy and elevated ESR could be due to her Sjogren's disease. She did not have a significant response to prednisone so will need to be weaned off. She will need close monitoring and further evaluation as an outpatient. Other etiologies for her elevated ESR and CRP may need to be considered if warranted as well. (6) Dementia Status: Chronic Hospital Course & Plan: She was continued on Aricept. (7) Sjogrens syndrome Status: Chronic Hospital Course & Plan: This was felt to likely be contributing to the gagging episodes. ST recommended dysphagia 2 diet , wet and chopped. No changes in liquid thickness recommended. (8) Dysphagia Status: Chronic Hospital Course & Plan: See above. (9) Hypothyroid Status: Chronic Hospital Course & Plan: TSH was elevated on admission. We did increase levothyroxine dose to 50mcg daily. She will need a recheck of her TSH in 4-6 weeks. She does have a thyroid nodule seen on the CT as well. She will need to have that evaluated as an outpatient if warranted. (10) Hyperlipemia Status: Chronic Hospital Course & Plan: She is on chronic treatment with pravastatin. Departure Weight (Pounds): 113 Weight (Ounces): 6.4 Result Diagram: 07/20/1762607/20/17626 Item Value Date Time Erythrocyte Sedimentation Rate 111 mm/HOUR H 07/13/17 0632 Erythrocyte Sedimentation Rate 94 mm/HOUR H 07/15/17 0615 Erythrocyte Sedimentation Rate 100 mm/HOUR H 07/20/17 0627 Urine Color Yellow 07/24/17 1010 Urine Clarity Cloudy 07/24/17 1010 Urine pH 8.0 pH 07/24/17 1010 Urine Specific [place] 1.012 07/24/17 1010 Urine Protein Negative mg/dL 07/24/17 1010 Urine Glucose (UA) Negative mg/dL 07/24/17 1010 Urine Ketones Negative mg/dL 07/24/17 1010 Urine Blood Small 07/24/17 1010 Urine Nitrite Negative 07/24/17 1010 Urine Bilirubin Negative 07/24/17 1010 Urine Urobilinogen Negative mg/dL 07/24/17 1010 Urine Leukocyte Esterase Small H 07/24/17 1010 Urine RBC <1 /HPF 07/24/17 1010 Urine WBC 1 /HPF 07/24/17 1010 Urine Squamous Epithelial Cells None /LPF 07/24/17 1010 Urine Amorphous Crystals Few /HPF 07/24/17 1010 Urine Bacteria Negative /HPF 07/24/17 1010 Urine Mucus None /HPF 07/24/17 1010 Clostridium Difficile Toxin A & B Negative 07/15/17 0000 Clostridium difficile Antigen Negative 07/15/17 0000 Random Glucose 84 mg/dl 07/20/17626 Calcium Level 9.2 mg/dl 07/20/17626 Total Bilirubin 0.4 mg/dl 07/20/17626 Aspartate Amino Transf (AST/SGOT) 17 U/L 07/20/17626 Alanine Aminotransferase (ALT/SGPT) 32 U/L 07/20/17626 Alkaline Phosphatase 107 U/L 07/20/17626 Total Protein 8.1 gm/dl 07/20/17626 Albumin 3.1 g/dl L 07/20/17626 Condition: Improved PT/OT Follow Up For: PT For Strengthening, OT For ADL's, ST Evaluation and Treat Home Health RN Follow Up For: Nursing Assessment Home Health RECYCLE COORDINATOR Follow Up For: ADL Assistance Time Spent: < 30 min Discharge Instructions Home Meds Active Scripts Prednisone 5 Mg Tab (PREDNISONE 5 MG TAB) 5 Mg Tablet, 15 MG PO QDAY, #30 TAB 15mg daily through 07/27 then decrease to 10mg daily through 08/01, then decrease to 5mg daily throught 08/02 then stop. Prov:KAILEE FLOWER MD 07/24/17 Levothyroxine Sodium (LEVOTHYROXINE SODIUM) 50 Mcg Tablet, 0.05 MG PO QDAY@06, # 30 TAB Prov:KAILEE FLOWER MD 07/24/17 Acetaminophen (MAPAP) 325 Mg Tablet, 650 MG PO Q6H Y for PAIN OR FEVER 100 OR GREATER, #60 TAB Prov:KAILEE FLOWER MD 07/24/17 Reported Medications Donepezil Hcl (DONEPEZIL HCL) 5 Mg Tablet, 5 MG PO QDAY, TAB 07/05/17 Pravastatin Sodium (PRAVACHOL) 20 Mg Tablet, 20 MG PO QDAY, TAB 07/05/17 Discontinued Reported Medications Levothyroxine Sodium (LEVOTHYROXINE SODIUM) 50 Mcg Tablet, 25 MCG PO QDAY, TAB 07/05/17 Special Instructions: 1. Diet-dysphagia 2, wet and chopped. Regular liquids. 2. The patient is to follow up with the provider of her choice in the next 1-2 weeks. Venous Thromboembolism Antithrombotics Is Pt On Any Antithrombotics?: Yes KAILEE FLOWER MD Jul 24, 2017 10:56
[2017-07-24] MEDS ORDERED: PRE5 PO (10:59)
--- NOTE | 2017-07-24 13:31 | PT ECF NOTE ---
Type of Note: Discharge Summary Primary Medical Diagnosis: Weakness following acute admission. Please see [facility] for records full description of prior hospital stay. Physical Therapy Evaluation Date: 07/10/17 SUBJECTIVE: Prior Hospitalization: [facility] acute 07/05-07/09/17 Prior Level of Function: Per Pt's , Pt was independent with functional mobility including ascending/descending flight of stairs to their apartment and was able to ambulate without the use of an assistive device. Pt is confused at baseline. Prior Living Status: Apartment, Spouse, Assist by Community Services: No known needs Home Accessibility: Flight of stairs with rails Equipment Owned: Toilet riser, Pt's states he has access to a walker if needed Medical Complications/Past Medical History: Complex medical history. Please see [facility] Psychosocial Support: Supportive Pain Scale (0-10): Pt denies and does not indicate any pain. OBJECTIVE: Bed Mobility: SBA Transfers: Varied from CGA-ModA with RW Gait: SBA/CGA x300' ASSESSMENT: The patient made slow progress towards functional goals and is not yet safe to d/c home. It was recommended that the patient transition to fdc rehab for further skilled care at this time. The patient and family are agreeable with this plan. Problem List/Current Limitations: Decreased activity tolerance, Decreased strength, Generalized weakness, Poor safety awareness, Memory deficits, Decreased problem solving, Confusion Short Term Goals: (not met) 1. Mod I bed mobility. 2. Mod I transfers. 3. Mod I gait x 200' with least restrictive device. 4. Ascend/descend 12 stairs with 1 rail and SBA. 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 Thank you for this referral. If you have any questions, concerns, or comments about this report or plan, please contact me at . Dory Lowe, PT, DPT MTDD
[2017-07-28] MEDS ORDERED: predniSONE 5 MG TAB PO SCH (09:00)
[2017-08-02] MEDS ORDERED: predniSONE 10 MG TAB PO SCH (09:00)
== END 2017-07-24 13:45 | disposition home or self-care (01) | DRG 948 ==
LOC: UNDOADMIN 13:30 → ECF 13:30 → UNDOADMIN 07-10 14:00 → ECF 07-10 14:00
PROVIDERS: ADMIT Internal Medicine; ATTEND Internal Medicine
DX: R53.1 Weakness (principal); I48.92 Unspecified atrial flutter; R62.7 Adult failure to thrive; Z90.2 Acquired absence of lung [part of]; Z90.49 Acquired absence of other specified parts of digestive tract; F03.90 Unspecified dementia, unspecified severity, without behavioral disturbance, psychotic disturbance, mood disturbance, and anxiety; M35.00 Sjogren syndrome, unspecified; E03.9 Hypothyroidism, unspecified; E78.5 Hyperlipidemia, unspecified; R13.10 Dysphagia, unspecified; R73.9 Hyperglycemia, unspecified
CPT/HCPCS: 36415; 36416; 81001; 82040; 82247; 82310; 82374; 82435; 82565; 82947; 82948; 84075; 84132; 84155; 84295; 84450; 84460; 84520; 85025; 85651; 87324; 87449; 97162; 97165; J1650; J7512

== ENCOUNTER → 2017-07-31 | Outpatient (REF) | payer MEDICARE, OTHER ==
[2017-07-06 14:32] VITALS: BMI 19.1
[~2017-07-31] MED LIST changes: +ACET-2007 PO; +PRE5 PO
[2017-07-31 15:51] LABS: LDL CHOLESTEROL 98 mg/dl
== END ==
LOC: ZZLCC 15:32
PROVIDERS: ATTEND Family Medicine
DX: E78.5 Hyperlipidemia, unspecified (principal); E03.9 Hypothyroidism, unspecified
CPT/HCPCS: 82040; 82247; 82310; 82374; 82435; 82465; 82565; 82947; 83718; 84075; 84132; 84155; 84295; 84443; 84450; 84460; 84478; 84520

== ENCOUNTER → 2017-08-06 | Outpatient (REF) | payer OTHER ==
[2017-07-06 14:32] VITALS: BMI 19.1
== END ==
LOC: ZZLCC 10:55
PROVIDERS: ATTEND Family Medicine
DX: R53.1 Weakness (principal)
CPT/HCPCS: 81001; 87088

== ENCOUNTER → 2017-08-24 | Outpatient (REF) | payer OTHER ==
[2017-07-06 14:32] VITALS: BMI 19.1
[2017-08-24 10:34] LABS: LDL CHOLESTEROL 79 mg/dl
== END ==
LOC: ZZLCC 08:00
PROVIDERS: ATTEND Family Medicine
DX: E03.9 Hypothyroidism, unspecified (principal); E78.5 Hyperlipidemia, unspecified
CPT/HCPCS: 82040; 82247; 82310; 82374; 82435; 82465; 82565; 82947; 83718; 84075; 84132; 84155; 84295; 84443; 84450; 84460; 84478; 84520

== ENCOUNTER → 2017-09-30 | Outpatient (REF) | payer OTHER ==
[2017-07-06 14:32] VITALS: BMI 19.1
== END ==
LOC: ZZLCC 11:48
PROVIDERS: ATTEND Family Medicine
DX: E87.1 Hypo-osmolality and hyponatremia (principal)
CPT/HCPCS: 82310; 82374; 82435; 82565; 82947; 84132; 84295; 84520

== ENCOUNTER → 2017-10-30 | Outpatient (REF) | payer MEDICARE ==
[2017-07-06 14:32] VITALS: BMI 19.1
== END ==
LOC: ZZSENDIN 16:46
PROVIDERS: ATTEND Physician Assistant
DX: N39.0 Urinary tract infection, site not specified (principal); B96.20 Unspecified Escherichia coli [E. coli] as the cause of diseases classified elsewhere
CPT/HCPCS: 87077; 87088; 87186

== ENCOUNTER → 2018-05-17 | Outpatient (REF) | payer MEDICARE ==
[2017-07-06 14:32] VITALS: BMI 19.1
== END ==
LOC: ZZSENDIN 17:51
PROVIDERS: ATTEND Family Medicine
DX: N39.0 Urinary tract infection, site not specified (principal); R82.79 Other abnormal findings on microbiological examination of urine
CPT/HCPCS: 81001; 87077; 87088; 87186

== ENCOUNTER → 2018-06-16 | Outpatient (CLI) | payer MEDICARE ==
[2017-07-06 14:32] VITALS: BMI 19.1
--- NOTE | 2018-06-16 15:27 | RADIOLOGY IMAGING REPORT ---
FACILITY: [facility] PATIENT NAME: April Barraza : 1940 MR: [id number] V: [id number] EXAM DATE: ORDERING PHYSICIAN: FRANCINE POWERS TECHNOLOGIST: Location: [facility] [place] Patient: April Barraza : 1940 Visit/Account:[id number] Date of Sevice: 06/16/2018 KIDNEYS HISTORY: UTIs and incontinence ADDITIONAL HISTORY: None. COMPARISON: None. FINDINGS: Kidneys: Right kidney- 10.4 craniocaudad by 5.3 x 3.6 cm, normal parenchymal thickness. Cortex appears mildly echogenic. Left kidney- 10.1 craniocaudad by 4.8 x 3.7 cm, normal parenchymal thickness. Cortex appears mildly echogenic. Uniform and symmetric blood flow in each kidney by Doppler ultrasound. Hydronephrosis: None. Bladder: Unremarkable. Bilateral ureteral jets: Documented Prevoid volume 235 mL and post void volume 109 mL. Large postvoid residual. Abdominal aorta and IVC: Patent by Doppler ultrasound. IMPRESSION: Mild increased echogenicity to the renal cortices raising possibility of medical renal disease. Zabrina elate with renal function. Moderately Large postvoid residual Pertinent negative-no sonographic evidence of stones or hydronephrosis Report Dictated By: Cole Rivas MD at 06/16/2018 3:21 PM Report E-Signed By: Cole Rivas MD at 06/16/2018 3:24 PM WSN:[email or web address]
== END ==
LOC: US 01:20
PROVIDERS: ATTEND Urology
DX: R33.9 Retention of urine, unspecified (principal)
CPT/HCPCS: 76705

== ENCOUNTER 2018-06-18 01:00 | Outpatient (RCR) | payer MEDICARE ==
[2017-07-06 14:32] VITALS: Ht 172.7 cm; Wt 50.8 kg
[~2018-06-18] VITALS: Ht 172.7 cm; Wt 50.8 kg
[2018-06-18] MEDS ORDERED: MIRT7.5T2 PO (14:16)
[2018-06-22 13:33] LABS: PLATELET COUNT, AUTOMATED 319 K/uL (150-450)
--- NOTE | 2018-06-22 14:08 | RADIOLOGY IMAGING REPORT ---
FACILITY: [facility] [place] PATIENT NAME: April Barraza : 1940 MR: [id number] V: [id number] EXAM DATE: ORDERING PHYSICIAN: FRANCINE POWERS TECHNOLOGIST: Location: [facility] Patient: April Barraza : 1940 Visit/Account:[id number] Date of Sevice: 06/21/2018 CHEST PA LAT HISTORY: Pulmonary disease COMPARISON: Chest x-ray 07/05/2017. Chest CT 07/05/2017 FINDINGS: Cardiomediastinal contours: Negative Lungs and pleura: Worsening right upper lobe airspace disease with cavitary lesion on prior chest CT. Bones/soft tissues: Normal Other findings: None significant IMPRESSION: 1. Worsening right upper lobe airspace disease with prior cavitary lesion on chest CT examination. Differential includes infectious process including tuberculosis and mass. Recommend chest CT with co ntrast for further evaluation. Report Dictated By: Oh Pierre MD at 06/22/2018 2:01 PM Report E-Signed By: Oh Pierre MD at 06/22/2018 2:05 PM WSN:[email or web address]
--- NOTE | 2018-06-22 14:16 | EKG ---
FACILITY: [facility] PATIENT NAME: AMY GUZMAN : [id number] MR: [id number] V: [id number] EXAM DATE: ORDERING PHYSICIAN: FRANCINE POWERS TECHNOLOGIST: Test Reason : Blood Pressure : / mmHG Vent. Rate : 079 BPM Atrial Rate : 079 BPM P-R Int : 146 ms QRS Dur : 086 ms QT Int : 374 ms P-R-T Axes : 090 063 065 degrees QTc Int : 428 ms Normal sinus rhythm Normal ECG When compared with ECG of 07-JUL-2017 10:37, Sinus rhythm has replaced Atrial flutter Vent. rate has decreased BY 73 BPM Confirmed by YOAV SUAREZ ([id number]) on 06/23/2018 6:25:10 AM Referred By: Confirmed By:YOAV SUAREZ
[2018-06-24] MEDS ORDERED: NORMOSOL R SOLN(*) 1000 ML BAG 1,000 ML IV PRN (08:00)
[2018-06-24] MEDS ORDERED: ceFAZolin(*) 1 GM VIAL 1 GM in NS(*) 0.9% 100 ML ADDVANT BAG 100 ML IVPB ONE (08:00)
[2018-06-24] MEDS ORDERED: LIDOCAINE/SOD BICARB 8.4% SYR ID ONE (08:00)
[2018-06-24] MEDS ORDERED: FAMOTIDINE 20 MG TAB PO ONE (08:00)
[2018-06-24] MEDS ORDERED: MIDAZOLAM 2 MG/2 ML VIAL IVP PRN (08:00)
== END 2018-06-23 18:00 | disposition home or self-care (01) ==
LOC: LAB 01:00 → OR 06-21 01:00 → LAB 06-21 01:00 → EDSTATUS 06-24 09:00
PROVIDERS: ATTEND Urology
DX: J98.4 Other disorders of lung (principal); Z87.440 Personal history of urinary (tract) infections
CPT/HCPCS: 36415; 71046; 81001; 82310; 82374; 82435; 82565; 82947; 84132; 84295; 84520; 85025; 87088; 93005

== ENCOUNTER → 2018-06-28 | Outpatient (CLI) | payer MEDICARE ==
[2017-07-06 14:32] VITALS: BMI 19.1
[~2018-06-28] MED LIST changes: +IOPAMIDOL 76% 75 ML INFUS BTL 75 ML ONE; +MIRT7.5T2 PO
--- NOTE | 2018-06-28 15:39 | RADIOLOGY IMAGING REPORT ---
FACILITY: [facility] PATIENT NAME: April Barraza : 1940 MR: [id number] V: [id number] EXAM DATE: ORDERING PHYSICIAN: JAVY BLANCA TECHNOLOGIST: Location: [facility] [place] Patient: April Barraza : 1940 Visit/Account:[id number] Date of Sevice: 06/28/2018 CT CHEST (CONTRAST) History: Abnormal chest x-ray TECHNIQUE: Contiguous axial images were performed through the chest to the level of the adrenal gla nds following the administration of IV contrast. Coronal and sagittal reformatting was also perform ed.Dose Lowering Technique One of the following dose optimization techniques was utilized in the performance of this exam: Autom ated exposure control; adjustment of the mA and/or kV according to the patient's size; or use of an i terative reconstruction technique. Specific details can be referenced in the facility's radiology C T exam operational policy. Contrast: 75 mL Isovue-370 COMPARISON STUDIES: Two view chest June 21, 2018. And CTA of the chest July 05, 2017 Lungs / Pleura: Irregular cavitary lesion in the right upper lobe has increased in size now measuri ng 2.8 x 2.5 x 4.3 cm, previously 2.8 x 2 x 4.2 cm. There is increasing adjacent airspace consolidat ion which now extends in a more medial and superior extent is abutting the medial and lateral pleural margins. There appears to be some necrosis within this consolidation Small area of scarring anterior right upper lobe appears relatively unchanged Multiple nodules medial right upper lobe measuring up to 6 cm in diameter appear relatively unchanged . Thick walled cavitary lesion in the right lower lobe abutting the major fissure now measures 1.8 x 0. 9 cm previously 1.9 x 1 cm there are multiple calcified nodules along the major fissure on the right multiple small noncalcified nodules along the posterior sulcus left lower lobe that appear relatively unchanged. There Is a new spiculation in the left upper lobe abutting the major fissure measuring 1 .3 x 1.1 x 0.6 cm Mediastinum/nodes: There several high right paratracheal lymph nodes largest measuring 9 x 9 mm and appears unchanged There is a 1.3 x 1 cm precarinal lymph node that appears unchanged. There is an 8 x 7 mm AP window l ymph node that also appears unchanged There is a 1.2 cm left thyroid nodule Heart and vessels: negative. Musculoskeletal / Body wall: There capsular calcifications surrounding the bilateral breast implant s. There is a moderate compression fracture of L1 which was incompletely imaged on the prior study Upper abdomen: There is thickening of the left adrenal gland IMPRESSION: Irregular cavitary lesion in the right upper lobe has increased in size when compared the prior study . There is also increasing adjacent airspace consolidation with superior retraction of the right hil um. Some of this airspace consolidation appears necrotic.. There calcite nodules along the major fi ssure on the right noncalcified calcified nodules in the medial right upper lobe have remained stable . There is mild mediastinal adenopathy that also remains relatively stable. These changes could be secondary to TB or fungal infection. An air-fluid level is not identified within the cavity therefor e a lung abscess seems less likely. Possibility of neoplasmremains within the differential diagnosis although seems less likely given the stability of the mild mediastinal adenopathy and the calcified and noncalcified pulmonary nodules. There is a new spiculation in the left upper lobe abutting the major fissure. This could be infectio us/inflammatory process versus scarring versus neoplastic process. 1.2 cm left thyroid nodule for which thyroid ultrasound may be helpful Additional chronic findings Report Dictated By: Angela Llamas MD at 06/28/2018 2:56 PM Report E-Signed By: Angela Llamas MD at 06/28/2018 3:35 PM WSN:[email or web address]
== END ==
LOC: CT 00:55
PROVIDERS: ATTEND Family Medicine
DX: E04.1 Nontoxic single thyroid nodule (principal); R91.8 Other nonspecific abnormal finding of lung field
CPT/HCPCS: 71260; Q9967

== ENCOUNTER 2018-08-28 17:24 | Emergency (ER) | payer MEDICARE ==
[2017-07-06 14:32] VITALS: Wt 51.0 kg
[2018-08-28] MEDS ORDERED: NS 0.9% IV ONE (17:55)
--- NOTE | 2018-08-28 18:00 | ER Report ---
History and Physical Time Seen By MD: 17:48 Hx. of Stated Complaint: high fever and chronic uti and severe fatigue HPI/ROS CHIEF COMPLAINT: High fevers, fatigue HISTORY OF PRESENT ILLNESS: This is a 78-year-old female presents to the emergency department with her for chronic UTIs, fevers and fatigue. Patient has a long history of urinary incontinence, has seen Dr. Renner multiple times has been evaluated, also noted to have a mass in her lung was seen and evaluated this last week in [place], last night her states that she began to have subjective fevers, felt warm, today has increased fatigue, inability to mobilize with increased subjective fevers. Was evaluated by home health and told to come to the ER for evaluation. Patient is laying on her right side at the time of my exam, is warm to touch, has a moist nonproductive cough. Her is sitting at the bedside. She denies pain at this time. No chest pain or shortness breath. REVIEW OF SYSTEMS: Constitutional: As above. Eyes: No discharge. ENT: No sore throat. Cardiovascular: No chest pain, no palpitations. Respiratory: No cough, no shortness of breath. Gastrointestinal: No abdominal pain, no vomiting. Genitourinary: As above. Musculoskeletal: No back pain. Skin: No rashes. Neurological: No headache. Allergies: Coded Allergies: No Known Drug Allergies (Unverified , 06/18/18) Home Meds Active Scripts Levothyroxine Sodium (LEVOTHYROXINE SODIUM) 50 Mcg Tablet, 0.05 MG PO QDAY@06, #30 TAB Prov:KAILEE FLOWER MD 07/24/17 Acetaminophen (MAPAP) 325 Mg Tablet, 650 MG PO Q6H PRN for PAIN OR FEVER 100 OR GREATER, #60 TAB Prov:KAILEE FLOWER MD 07/24/17 Reported Medications Mirtazapine (MIRTAZAPINE) 7.5 Mg Tablet, 7.5 MG PO DAILY 06/18/18 Donepezil Hcl (DONEPEZIL HCL) 5 Mg Tablet, 10 MG PO QDAY, TAB 07/05/17 Pravastatin Sodium (PRAVACHOL) 20 Mg Tablet, 20 MG PO QDAY, TAB 07/05/17 Past Medical/Surgical History Patient has a past medical surgical history of Alzheimer's disease, hypercholesterolemia, yeast infection in her lung, asthma, pulmonary embolus, multiple urinary tract infections, dry mouth syndrome, wears glasses, hypothyroidism, Sjogren syndrome, rashes on her leg, appendectomy, Colace cystectomy, partial right pneumonectomy. Reviewed Nurses Notes: Yes Hx Smoking: No Smoking Status: Never Smoker Exposure to Second Hand Smoke?: Yes Hx Alcohol Use: No Constitutional Vital Sign - Last 24 Hours 08/28/18 08/28/18 08/28/18 08/28/18 17:38 17:47 17:54 18:16 Temp 100.4 Pulse 120 118 Resp 18 25 B/P (MAP) 104/62 (76) 104/62 103/58 (73) Pulse Ox 86 95 O2 Delivery Room Air 08/28/18 08/28/18 08/28/18 18:24 18:30 19:02 Pulse 117 Resp 20 B/P (MAP) 97/64 (75) 111/73 (86) Physical Exam General Appearance: The patient is alert, has no immediate need for airway protection and no signs of toxicity, pale. Eyes: Pupils equal and round no pallor or injection. ENT, Mouth: Mucous membranes are dry, geographic tongue. Respiratory: There are no retractions, lungs are diminished throughout, otherwise clear to auscultation. Cardiovascular: Regular rate and rhythm, no murmurs, clicks or rubs. Gastrointestinal: Abdomen is soft and non tender, no masses, hypoactive bowel sounds. Neurological: Alert and oriented 3, at baseline history of dementia. Moving all extremities. Following all commands. No focal neurodeficits. Skin: Hot to touch, dry, no rashes. Musculoskeletal: Neck is supple non tender. Extremities are nontender, nonswollen and have full range of motion. DIFFERENTIAL DIAGNOSIS: After history and physical exam differential diagnosis was considered for adult fever including but not limited to viral syndromes including influenza, urinary tract infection, pneumonia and sepsis. Medical Decision Making Data Points Result Diagram: 08/28/18 1800 08/28/18 1800 Laboratory Hematology Test 08/28/18 17:40 08/28/18 18:00 08/28/18 18:16 Urine Color Yellow Urine Clarity Cloudy Urine pH 6.0 pH (4.8-9.5) Urine Specific [place] 1.014 Urine Protein 100 mg/dL (NEGATIVE) Urine Glucose (UA) Negative mg/dL (NEGATIVE) Urine Ketones Negative mg/dL (NEGATIVE) Urine Blood Moderate (NEGATIVE) Urine Nitrite Positive (NEGATIVE) Urine Bilirubin Negative (NEGATIVE) Urine Urobilinogen Negative mg/dL (0.2-1.9) Urine Leukocyte Esterase Large (NEGATIVE) Urine RBC 7 /HPF (0-2/HPF) Urine WBC 163 /HPF (0-5/HPF) Urine WBC Clumps Few /HPF Urine Squamous Epithelial Cells Moderate /LPF (</=FEW) Urine Bacteria Few /HPF (NONE-FEW) Urine Hyaline Casts Few /LPF (NONE-FEW) Urine Mucus None /HPF (NONE-FEW) Red Blood Count 4.53 M/uL (4.17-5.56) Mean Corpuscular Volume 85.0 fL (80.0-96.0) Mean Corpuscular Hemoglobin 28.3 pg (26.0-33.0) Mean Corpuscular Hemoglobin Concent 33.3 g/dL (32.0-36.0) Red Cell Distribution Width 17.9 % (11.5-14.5) Mean Platelet Volume 7.4 fL (7.2-11.1) Neutrophils (%) (Auto) 78.3 % (39.4-72.5) Lymphocytes (%) (Auto) 12.3 % (17.6-49.6) Monocytes (%) (Auto) 8.7 % (4.1-12.4) Eosinophils (%) (Auto) 0.0 % (0.4-6.7) Basophils (%) (Auto) 0.7 % (0.3-1.4) Nucleated RBC Relative Count (auto) 0.0 /100WBC Neutrophils # (Auto) 7.4 K/uL (2.0-7.4) Lymphocytes # (Auto) 1.2 K/uL (1.3-3.6) Monocytes # (Auto) 0.8 K/uL (0.3-1.0) Eosinophils # (Auto) 0.0 K/uL (0.0-0.5) Basophils # (Auto) 0.1 K/uL (0.0-0.1) Nucleated RBC Absolute Count (auto) 0.00 K/uL Prothrombin Time 17.1 seconds (12.0-14.4) Prothromb Time International Ratio 1.38 Activated Partial Thromboplast Time 33 seconds (23-35) Sodium Level 135 mmol/L (137-145) Potassium Level 4.2 mmol/L (3.5-5.0) Chloride Level 100 mmol/L (98-107) Carbon Dioxide Level 26 mmol/L (22-31) Blood Urea Nitrogen 24 mg/dl (7-18) Creatinine 0.90 mg/dl (0.52-1.04) Glomerular Filtration Rate Calc > 60.0 Random Glucose 167 mg/dl (75-110) Lactate 2.1 mmol/L (0.7-2.1) Calcium Level 9.2 mg/dl (8.4-10.2) Total Bilirubin 0.3 mg/dl (0.2-1.3) Aspartate Amino Transf (AST/SGOT) 31 U/L (0-35) Alanine Aminotransferase (ALT/SGPT) 10 U/L (0-56) Alkaline Phosphatase 87 U/L (0-126) Total Protein 9.1 g/dl (6.3-8.2) Albumin 3.7 g/dl (3.5-5.0) Influenza Virus Type A (PCR) Negative (NEGATIVE) Influenza Virus Type B (PCR) Negative (NEGATIVE) Chemistry Test 08/28/18 17:40 08/28/18 18:00 08/28/18 18:16 Urine Color Yellow Urine Clarity Cloudy Urine pH 6.0 pH (4.8-9.5) Urine Specific [place] 1.014 Urine Protein 100 mg/dL (NEGATIVE) Urine Glucose (UA) Negative mg/dL (NEGATIVE) Urine Ketones Negative mg/dL (NEGATIVE) Urine Blood Moderate (NEGATIVE) Urine Nitrite Positive (NEGATIVE) Urine Bilirubin Negative (NEGATIVE) Urine Urobilinogen Negative mg/dL (0.2-1.9) Urine Leukocyte Esterase Large (NEGATIVE) Urine RBC 7 /HPF (0-2/HPF) Urine WBC 163 /HPF (0-5/HPF) Urine WBC Clumps Few /HPF Urine Squamous Epithelial Cells Moderate /LPF (</=FEW) Urine Bacteria Few /HPF (NONE-FEW) Urine Hyaline Casts Few /LPF (NONE-FEW) Urine Mucus None /HPF (NONE-FEW) White Blood Count 9.5 k/uL (4.5-11.0) Red Blood Count 4.53 M/uL (4.17-5.56) Hemoglobin 12.8 g/dL (12.0-16.0) Hematocrit 38.5 % (34.0-47.0) Mean Corpuscular Volume 85.0 fL (80.0-96.0) Mean Corpuscular Hemoglobin 28.3 pg (26.0-33.0) Mean Corpuscular Hemoglobin Concent 33.3 g/dL (32.0-36.0) Red Cell Distribution Width 17.9 % (11.5-14.5) Platelet Count 300 K/uL (150-450) Mean Platelet Volume 7.4 fL (7.2-11.1) Neutrophils (%) (Auto) 78.3 % (39.4-72.5) Lymphocytes (%) (Auto) 12.3 % (17.6-49.6) Monocytes (%) (Auto) 8.7 % (4.1-12.4) Eosinophils (%) (Auto) 0.0 % (0.4-6.7) Basophils (%) (Auto) 0.7 % (0.3-1.4) Nucleated RBC Relative Count (auto) 0.0 /100WBC Neutrophils # (Auto) 7.4 K/uL (2.0-7.4) Lymphocytes # (Auto) 1.2 K/uL (1.3-3.6) Monocytes # (Auto) 0.8 K/uL (0.3-1.0) Eosinophils # (Auto) 0.0 K/uL (0.0-0.5) Basophils # (Auto) 0.1 K/uL (0.0-0.1) Nucleated RBC Absolute Count (auto) 0.00 K/uL Prothrombin Time 17.1 seconds (12.0-14.4) Prothromb Time International Ratio 1.38 Activated Partial Thromboplast Time 33 seconds (23-35) Glomerular Filtration Rate Calc > 60.0 Lactate 2.1 mmol/L (0.7-2.1) Calcium Level 9.2 mg/dl (8.4-10.2) Total Bilirubin 0.3 mg/dl (0.2-1.3) Aspartate Amino Transf (AST/SGOT) 31 U/L (0-35) Alanine Aminotransferase (ALT/SGPT) 10 U/L (0-56) Alkaline Phosphatase 87 U/L (0-126) Total Protein 9.1 g/dl (6.3-8.2) Albumin 3.7 g/dl (3.5-5.0) Influenza Virus Type A (PCR) Negative (NEGATIVE) Influenza Virus Type B (PCR) Negative (NEGATIVE) Coagulation Test 08/28/18 18:00 Prothrombin Time 17.1 seconds Prothromb Time International Ratio 1.38 Activated Partial Thromboplast Time 33 seconds Urinalysis Test 08/28/18 17:40 Urine Color Yellow Urine Clarity Cloudy Urine pH 6.0 pH (4.8-9.5) Urine Specific [place] 1.014 Urine Protein 100 mg/dL (NEGATIVE) Urine Glucose (UA) Negative mg/dL (NEGATIVE) Urine Ketones Negative mg/dL (NEGATIVE) Urine Blood Moderate (NEGATIVE) Urine Nitrite Positive (NEGATIVE) Urine Bilirubin Negative (NEGATIVE) Urine Urobilinogen Negative mg/dL (0.2-1.9) Urine Leukocyte Esterase Large (NEGATIVE) Urine RBC 7 /HPF (0-2/HPF) Urine WBC 163 /HPF (0-5/HPF) Urine WBC Clumps Few /HPF Urine Squamous Epithelial Cells Moderate /LPF (</=FEW) Urine Bacteria Few /HPF (NONE-FEW) Urine Hyaline Casts Few /LPF (NONE-FEW) Urine Mucus None /HPF (NONE-FEW) EKG/Imaging EKG Interpretation 12 lead EKG: Time of EKG 1810. Rhythm: Sinus tachycardia, ventricular rate 1:15 bpm. [place]: normal QRS: normal ST segments: No ST depression or elevation identified. Imaging PATIENT NAME: April Barraza : 1940 MR: [id number] V: [id number] EXAM DATE: ORDERING PHYSICIAN: ODALIS BARONE TECHNOLOGIST: Location: [facility] Patient: April Barraza : 1940 Visit/Account:[id number] Date of Sevice: 08/28/2018 CHEST SINGLE AP Indication: Possible sepsis.. Comparison: 06/22/2018. Findings: Cardiomediastinal silhouette and pulmonary vessels within normal is for the technique and rotation. There is worsening patchy interstitial and alveolar opacity seen in the right upper lobe. Faint interstitial opacities seen in the lateral aspect of the inferior left upper lobe. This is not seen previously. There is also mild haziness in the medial left lower lobe. The remaining lung willams are clear. No pneumothorax or pleural effusion. Upper abdomen is unremarkable. No acute bony abnormality. IMPRESSION: 1. Worsening infiltrates in the right upper lobe with new small hazy infiltrate in the lateral inferior left upper lobe and medial left lower lobe. Suggesting multilobar pneumonia. Suggest follow-up films to assess for clearing or other etiologies. Report Dictated By: Wander Whiting at 08/28/2018 7:04 PM Report E-Signed By: Wander Whiting at 08/28/2018 7:06 PM WSN:[id number] ED Course/Re-evaluation Clinical Indication for ER IV: Hydration, IV Access ED Course The patient was admitted to room. A history of physical were obtained. Differential diagnoses were considered. An IV was started. A CBC, CMP sepsis p rotocol was initiated. 30 mL/kg normal saline initiated per protocol.CBC showing normal white count with a left shift of 78.3, sodium 135, glucose 167, lactate 2.1, INR 1.38, UA showing positive nitrites with 163 urine white blood cells, negative influenza. Chest x-ray showing Worsening infiltrates in the right upper lobe with new small hazy infiltrate in the lateral inferior left upper lobe and medial left lower lobe. Suggesting multilobar pneumonia. Suggest follow-up films to assess for clearing or other etiologies. Dr. Viveros and I reviewed the case as noted below, with the previous CT report from 2 months ago with the possibility of a fungal infection, TB or consolidation in the lungs that could potentially be necrotic felt that she would be better served at [facility], where she saw Dr. Haas the manager education, she had a bronchial wash. I spoke with Dr. Btuler the hospitalist at [facility], he's accepted the patient in the hospitalist services. She will be transferred down via ground ambulance. She was started on vancomycin and Zosyn. She was also given a gram of Ofimrev. 08/28/2018 6:00:28 pm patient is at risk for sepsis, sepsis protocol initiated, fluid started at 30 mL/kg. 08/28/2018 7:52:01 pm I did speak with Dr. Viveros, the hospitalist, we discussed patient's case, he felt she would be better served at [facility] in [place] by pulmonology. I did speak with Dr. Butler the hospitalist at [facility], he's accepted the patient in the hospitalist services, the patient will be transferred via ground EMS. The did go home shortly after the patient was admitted to the emergency department. I did call and speak with him several times updating him on the patient's status, I did talk to him about a transfer to [place], he said that whatever we need to do is okay, he was not in the emergency department at the time of the patient's transfer. Decision to Disposition Date: Aug 28, 2018 Decision to Disposition Time: 19:51 Depart Departure Latest Vital Signs Vital Signs Date Time Temp Pulse Resp B/P (MAP) Pulse Ox O2 Delivery O2 Flow Rate FiO2 08/28/18 19:02 111/73 (86) 08/28/18 18:24 117 20 08/28/18 17:54 95 08/28/18 17:47 100.4 Room Air Impression: Primary Impression: Pneumonia Condition: Improved Disposition: XFER TO ACUTE CARE HOSPITAL ([facility]) Problem Qualifiers Primary Impression: Pneumonia Pneumonia type: due to unspecified organism Laterality: bilateral Lung location: upper lobe of lung Qualified Codes: J18.1 - Lobar pneumonia, unspecified organism ODALIS BARONE MISSILE TECHNICIAN-BC Aug 28, 2018 18:00
[2018-08-28 18:11] LABS: PLATELET COUNT, AUTOMATED 300 K/uL (150-450)
[2018-08-28 18:20] LABS: INR 1.38
--- NOTE | 2018-08-28 18:37 | EKG ---
[place] [facility] [place] NAME[place] AMY GUZMAN : [id number] MR: [id number] V: [id number] EXAM DATE: ORDERING PHYSICIAN: ODALIS BARONE TECHNOLOGIST: Ryan Gordillo Reason : poss. sepsis Blood Pressure : / mmHG Vent. Rate : 115 BPM Atrial Rate : 115 BPM P-R Int : 126 ms QRS Dur : 076 ms QT Int : 314 ms P-R-T Axes : 075 018 073 degrees QTc Int : 434 ms Sinus tachycardia Otherwise normal ECG When compared with ECG of 22-JUN-2018 14:03, No significant change was found Confirmed by MARIE PATINO ([id number]) on 08/28/2018 8:38:43 PM Referred By: Confirmed By:MARIE PATINO
--- NOTE | 2018-08-28 19:11 | RADIOLOGY IMAGING REPORT ---
FACILITY: [facility] - [place] PATIENT NAME: April Barraza : 1940 MR: [id number] V: [id number] EXAM DATE: ORDERING PHYSICIAN: ODALIS BARONE TECHNOLOGIST: Location: [facility] [place] Patient: April Barraza : 1940 Visit/Account:[id number] Date of Sevice: 08/28/2018 CHEST SINGLE AP Indication: Possible sepsis.. Comparison: 06/22/2018. Findings: Cardiomediastinal silhouette and pulmonary vessels within normal is for the technique and rotation. There is worsening patchy interstitial and alveolar opacity seen in the right upper lobe. Faint inter stitial opacities seen in the lateral aspect of the inferior left upper lobe. This is not seen previo usly. There is also mild haziness in the medial left lower lobe. The remaining lung willams are clear. No pneumothorax or pleural effusion. Upper abdomen is unremarkable. No acute bony abnormality. IMPRESSION: 1. Worsening infiltrates in the right upper lobe with new small hazy infiltrate in the lateral inferi or left upper lobe and medial left lower lobe. Suggesting multilobar pneumonia. Suggest follow-up fi lms to assess for clearing or other etiologies. Report Dictated By: Wander Whiting at 08/28/2018 7:04 PM Report E-Signed By: Wander Whiting at 08/28/2018 7:06 PM WSN:[id number]
[2018-08-28] MEDS ORDERED: PIPERACILLIN/TAZO*3.375GM VIAL 3.375 GM in NS(*) 0.9% 100 ML MINI-BAG 100 ML IVPB ONE (19:55)
[2018-08-28] MEDS ORDERED: VANCOMYCIN(*) 1 GM VIAL 1.25 GM in NS(*) 0.9% 250 ML BAG 250 ML IVPB ONE (19:55)
[2018-08-28] MEDS ORDERED: ACETAMINOPHEN(*)1000 MG/100 ML 100 ML IVPB ONE (19:55)
--- NOTE | 2018-08-28 20:12 | Pharmacy Note ---
Vancomycin Management Note Vanco Dosing Note Vancomycin dose calculated 750 mg q24 hours based on est crcl = 42 KAILEE IXONG Aug 28, 2018 20:12
[2018-08-28 20:30] VITALS: BP 97/61
[2018-08-29] MEDS ORDERED: VANCOMYCIN HCL(*) 0.750 GM ADD 0.75 GM in NS(*) 0.9% 250 ML ADDVAN BAG 250 ML IVPB SCH (20:00)
== END 2018-08-28 21:23 | disposition short-term general hospital (02) ==
LOC: ER 17:55
DX: J18.1 Lobar pneumonia, unspecified organism (principal)
CPT/HCPCS: 71045; 81001; 83605; 85025; 85610; 85730; 87040; 87077; 87088; 87186; 87502; 93005; 96361; 96365; 96368; 99285; J0131; J2543; J3370; J7030; J7050; 82040; 82247; 82310; 82374; 82435; 82565; 82947; 84075; 84132; 84155; 84295; 84450; 84460; 84520

== ENCOUNTER → 2018-08-28 | Outpatient (CLI) | payer MEDICARE ==
[2017-07-06 14:32] VITALS: BMI 19.1
[~2018-08-28] MED LIST changes: -IOPAMIDOL 76% 75 ML INFUS BTL 75 ML ONE
== END ==
LOC: AMB 21:13
PROVIDERS: ATTEND Nurse Practitioner
DX: A41.9 Sepsis, unspecified organism (principal)
CPT/HCPCS: A0425; A0428